=== PATIENT | female | born 1955 | race Caucasian/White ===

== ENCOUNTER → 2018-05-26 11:28 | Outpatient (CLI) | payer OTHER, SELFPAY ==
--- NOTE | 2018-05-26 | DI.MG.S_ITS ---
BILATERAL DIGITAL SCREENING MAMMOGRAM 3D/2D WITH CAD: 05/26/2018 CLINICAL: Routine screening. Family history of breast cancer. Comparison is made to exams dated: 05/15/2017 mammogram, 04/25/2016 mammogram - [facility], and 03/08/2015 mammogram - [facility] Current study was also evaluated with a Computer Aided Detection (CAD) system. There are benign calcifications in the left breast. Stable group of anterior depth punctate calcifications which appear slightly more pronounced since 2017 but stable since 2018. No associated mass or architectural distortion. No significant masses, calcifications, or other findings are seen in either breast. There has been no significant interval change. IMPRESSION: There is no mammographic evidence of malignancy. A 1 year screening mammogram is recommended. This exam was interpreted at Station ID: [id number]. NOTE: For mammograms, a report in lay terms will be sent to the patient. Approximately 15% of breast malignancies will not be visualized mammographically. In the management of a palpable breast mass, a negative mammogram must not discourage biopsy of a clinically suspicious lesion. Electronically Signed By: Dominic ludwig/:05/26/2018 12:32:57 letter sent: Normal Exam ACR BI-RADS Category 2: Benign Finding(s) 3342F
== END ==
PROVIDERS: Family Provider Family Medicine; PCP Family Medicine; Visit Provider Family Medicine
DX: Z12.31 Encounter for screening mammogram for malignant neoplasm of breast (principal); Z80.3 Family history of malignant neoplasm of breast
CPT/HCPCS: 77063; 77067

== ENCOUNTER → 2018-09-09 09:00 | Outpatient (CLI) | payer OTHER, SELFPAY ==
--- NOTE | 2018-09-09 09:01 | DI.US.S_ITS ---
PROCEDURE: US PERIPH VENOUS LOW EXTREM LT INDICATIONS: CALF PAIN TECHNIQUE: Real-time imaging, as well as color and pulse Doppler interrogation, were performed of the lower extremity deep veins from the inguinal ligament to the popliteal fossa. COMPARISON: None. FINDINGS: The common femoral, femoral and popliteal veins are normally compressible, and free of intraluminal thrombus. Color and pulse Doppler demonstrate normal phasic intraluminal flow. There is normal augmentation response to distal compression maneuver. IMPRESSION: No evidence of deep vein thrombosis of the left lower extremity. Dictated by: Mustapha Glover M.D. on 09/09/2018 at 9:35 Approved by: Mustapha Glover M.D. on 09/09/2018 at 9:35
== END ==
PROVIDERS: Family Provider Family Medicine; PCP Family Medicine; Visit Provider Hospitalist
DX: M79.662 Pain in left lower leg (principal)
CPT/HCPCS: 93971

== ENCOUNTER → 2019-02-20 11:21 | Outpatient (CLI) | payer OTHER, SELFPAY ==
[2019-02-20 12:47] LABS: Add Manual Diff / Slide Review NO; Basophils Absolute Auto 100 /uL (0-100); Basophils Percent Auto 1.1 % (0-2); Eosinophils Absolute Auto 100 /uL (0-450); Eosinophils Percent Auto 1.8 % (2-4); Hematocrit 41.6 % (36-46); Hemoglobin 14.1 g/dL (12.0-16.0); Lymphocytes Absolute Auto 2200 /uL (1100-4500); Lymphocytes Percent Auto 38.8 % (25-40); Mean Corpuscular Hemoglobin 31.6 PG (26-34); Monocytes Absolute Auto 500 /uL (0-900); Monocytes Percent Auto 8.8 % (3-14); Neutrophils Absolute Auto 2800 /uL (1500-7000); Neutrophils Percent Auto 49.5 % (50-75); Platelet Count 259 X10^3/uL (150-400); Red Blood Cell Count 4.47 X10^6/uL (4.0-5.2); Red Cell Distribution Width 12.4 % (11.6-14.8); White Blood Cell Count 5.7 X10^3/uL (4.5-11.0)
[2019-02-20 13:28] LABS: Alanine Aminotransferase 20 IU/L (<35); Albumin 4.9 g/dL (3.5-5.0); Albumin Globulin Ratio 1.8 (1.0-2.8); Alkaline Phosphatase 65 U/L (38-126); Aspartate Aminotransferase 32 IU/L (14-36); BUN Creatinine Ratio 17.1 (6-22); Bilirubin Total 0.6 mg/dL (0.2-1.3); Blood Urea Nitrogen 12 mg/dL (7-17); Calcium 9.7 mg/dL (8.4-10.2); Carbon Dioxide 28 mmol/L (22-32); Chloride 102 mmol/L (98-107); Estimated Glomerular Filt Rate > 60.0 mL/min (>60); Globulin 2.8 g/dL (1.7-4.1); Glucose 95 mg/dL (80-110); HEMOLYSIS < 15 (0-50); Potassium 4.2 mmol/L (3.4-5.1); Sodium 140 mmol/L (137-145); Total Protein 7.7 g/dL (6.3-8.2)
[2019-02-20 14:09] LABS: Vitamin B12 923 pg/mL (239-931)
[2019-02-20 15:01] LABS: Vitamin D 25 Hydroxy (D3) 43.7 ng/mL (30.0-100.0)
== END ==
PROVIDERS: PCP Family Medicine; Visit Provider Family Medicine
DX: E53.8 Deficiency of other specified B group vitamins (principal); R06.02 Shortness of breath; M85.80 Other specified disorders of bone density and structure, unspecified site
CPT/HCPCS: 36415; 80053; 82306; 82607; 85025

== ENCOUNTER → 2019-03-10 13:00 | Outpatient (CLI) | payer OTHER, SELFPAY | PROVIDERS: PCP Family Medicine; Visit Provider Family Medicine | DX: M85.852 Other specified disorders of bone density and structure, left thigh (principal); Z78.0 Asymptomatic menopausal state; R29.890 Loss of height | CPT/HCPCS: 77080 ==

== ENCOUNTER → 2019-04-02 13:45 | Outpatient (CLI) | payer OTHER, SELFPAY ==
--- NOTE | 2019-04-13 08:07 | PM.PFT.1 ---
Pulmonary Function Test Referral & Results Date Patient Seen: 04/02/19 Requesting provider: Pat Deng Results: The spirometry demonstrates an FVC of 2.71 L which is 86% of predicted. The FEV1 was measured at 2.13 L which is 88% of predicted. The FEV1/FVC ratio was 79 which is 101% of predicted. Following the administration of bronchodilator there was no appreciable change. Lung volumes show an SVC of 2.71 L which is 92% of predicted. The diffusing capacity was measured at 17.55 which is 74% of predicted. No hemoglobin value was provided, so no correction for potential anemia could be made, if appropriate. The maximum voluntary ventilation was slightly reduced Interpretation: This study demonstrates perhaps very mild obstructive lung disease based on minimal reduction FEV1. There is also a mild reduction in diffusing capacity suggesting an element of disease at the capillary alveolar level This study could also be interpreted as normal although the diffusing capacity is minimally reduced in probably does reflect an element of disease Clinical correlation suggested
== END ==
PROVIDERS: PCP Family Medicine; Visit Provider Family Medicine
DX: Z77.22 Contact with and (suspected) exposure to environmental tobacco smoke (acute) (chronic) (principal); J98.8 Other specified respiratory disorders
CPT/HCPCS: 94060; 94726; 94729

== ENCOUNTER → 2019-10-28 10:56 | Outpatient (CLI) | payer MEDICARE, OTHER, SELFPAY ==
--- NOTE | 2019-10-28 | DI.MG.S_ITS ---
BILATERAL DIGITAL SCREENING MAMMOGRAM 3D/2D WITH CAD: 10/28/2019 CLINICAL: Routine screening. Family history of breast cancer. Comparison is made to exams dated: 05/26/2018 mammogram, 05/15/2017 mammogram, and 04/25/2016 mammogram - [facility]. There are scattered fibroglandular elements in both breasts. Current study was also evaluated with a Computer Aided Detection (CAD) system. There are 0.4 cm grouped fine punctate calcifications in the left breast central to the nipple anterior depth. These are more prominent and increased in number. No other significant masses, calcifications, or other findings are seen in either breast. IMPRESSION: INCOMPLETE: NEEDS ADDITIONAL IMAGING EVALUATION The 0.4 cm grouped fine punctate calcifications in the left breast are indeterminate. Mediolateral, spot magnification, and additional views are recommended. This exam was interpreted at Station ID: [id number]. NOTE: For mammograms, a report in lay terms will be sent to the patient. Approximately 15% of breast malignancies will not be visualized mammographically. In the management of a palpable breast mass, a negative mammogram must not discourage biopsy of a clinically suspicious lesion. Electronically Signed By: Dominic Kovacs M.D. aty/:10/28/2019 17:31:57 letter sent: Additional Imaging Needed ACR BI-RADS Category 0: Incomplete 3340F
== END ==
PROVIDERS: PCP Family Medicine; Referring Provider Family Medicine; Visit Provider Family Medicine
DX: Z12.31 Encounter for screening mammogram for malignant neoplasm of breast (principal); Z80.3 Family history of malignant neoplasm of breast
CPT/HCPCS: 77063; 77067

== ENCOUNTER → 2020-11-22 14:52 | Outpatient (CLI) | payer MEDICARE, OTHER, SELFPAY ==
--- NOTE | 2020-11-22 | DI.MG.S_ITS ---
BILATERAL DIGITAL SCREENING MAMMOGRAM 3D/2D WITH CAD: 11/22/2020 CLINICAL: Routine screening. Family history of breast cancer. Comparison is made to exams dated: 11/05/2019 mammogram - [facility], 10/28/2019 mammogram, 05/26/2018 mammogram, 05/15/2017 mammogram, and 04/25/2016 mammogram - [facility]. There are scattered fibroglandular elements in both breasts. Current study was also evaluated with a Computer Aided Detection (CAD) system. There is a biopsy clip in the left breast. No significant masses, calcifications, or other findings are seen in either breast. There has been no significant interval change. IMPRESSION: NEGATIVE There is no mammographic evidence of malignancy. A 1 year screening mammogram is recommended. This exam was interpreted at Station ID: [id number]. NOTE: For mammograms, a report in lay terms will be sent to the patient. Approximately 15% of breast malignancies will not be visualized mammographically. In the management of a palpable breast mass, a negative mammogram must not discourage biopsy of a clinically suspicious lesion. Electronically Signed By: Hardeep mitchell/kam:11/22/2020 15:41:37 letter sent: Normal Exam ACR BI-RADS Category 1: Negative 3341F
== END ==
PROVIDERS: PCP Family Medicine; Referring Provider Family Medicine; Visit Provider Family Medicine
DX: Z12.31 Encounter for screening mammogram for malignant neoplasm of breast (principal); Z80.3 Family history of malignant neoplasm of breast
CPT/HCPCS: 77063; 77067

== ENCOUNTER → 2021-01-02 14:30 | Outpatient (CLI) | payer MEDICARE, OTHER, SELFPAY ==
--- NOTE | 2021-01-02 14:33 | DI.RAD.S_ITS ---
PROCEDURE: XR KNEE LT 3V INDICATIONS: left knee pain TECHNIQUE: 3 views of the knee were acquired. COMPARISON: None. FINDINGS: Bones: No fractures or dislocations. No suspicious bony lesions. Mild medial patellofemoral compartment narrowing. No erosions or periarticular osteophytes. Soft tissues: Mild joint effusion. No suspicious soft tissue calcifications. IMPRESSION: Arthritic changes as above. No visualized acute fracture or dislocation. However, if clinical concern and/or pain persist, short interval imaging followup in 7-10 days is recommended, as occult injury cannot be definitively excluded. Dictated by: Jessica Gipson M.D. on 01/02/2021 at 16:08 Approved by: Jessica Gipson M.D. on 01/02/2021 at 16:08
== END ==
PROVIDERS: PCP Family Medicine; Referring Provider Family Medicine; Visit Provider Family Medicine
DX: M25.562 Pain in left knee (principal); M25.462 Effusion, left knee
CPT/HCPCS: 73562

== ENCOUNTER → 2021-01-04 07:26 | Outpatient (CLI) | payer MEDICARE, OTHER, SELFPAY ==
[2021-01-04 08:30] LABS: Alanine Aminotransferase 16 IU/L (<35); Albumin 4.2 g/dL (3.5-5.0); Albumin Globulin Ratio 1.7 (1.0-2.8); Alkaline Phosphatase 56 U/L (38-126); Aspartate Aminotransferase 26 IU/L (14-36); Bilirubin Total 0.5 mg/dL (0.2-1.3); Blood Urea Nitrogen 12 mg/dL (7-17); Calcium 9.6 mg/dL (8.4-10.2); Carbon Dioxide 30 mmol/L (22-32); Chloride 105 mmol/L (98-107); Cholesterol 234 mg/dL (140-199); Estimated Glomerular Filt Rate > 60.0 mL/min (>60); Globulin 2.5 g/dL (1.7-4.1); Glucose 88 mg/dL (80-110); HDL Cholesterol 78 mg/dL (40-60); HEMOLYSIS < 15 (0-50); LDL Cholesterol Calculated 134 mg/dL (<100); Potassium 4.5 mmol/L (3.4-5.1); Sodium 139 mmol/L (137-145); Total Protein 6.7 g/dL (6.3-8.2); Triglycerides 112 mg/dL (35-150)
[2021-01-04 08:44] LABS: Vitamin D 25 Hydroxy (D3) 48.9 ng/mL (30.0-100.0)
[2021-01-04 09:40] LABS: Vitamin B12 954 pg/mL (239-931)
== END ==
PROVIDERS: PCP Family Medicine; Referring Provider Family Medicine; Visit Provider Family Medicine
DX: G62.9 Polyneuropathy, unspecified (principal); Z13.220 Encounter for screening for lipoid disorders; E55.9 Vitamin D deficiency, unspecified; M85.80 Other specified disorders of bone density and structure, unspecified site; E78.5 Hyperlipidemia, unspecified
CPT/HCPCS: 36415; 80053; 80061; 82306; 82607

== ENCOUNTER → 2021-03-23 09:27 | Outpatient (CLI) | payer MEDICARE, OTHER, SELFPAY ==
--- NOTE | 2021-03-23 09:28 | DI.RAD.S_ITS ---
PROCEDURE: XR DEXA AXIAL SKELETON INDICATIONS: postmenopausal female COMPARISON: [facility], CR, XR DEXA AXIAL SKELETON, 03/10/2019, 13:15. FINDINGS: This blank DEXA report has been sent in error by the PACS system. The correct and complete report will be forthcoming in 1-2 days. Thank you for your patience and understanding. Dictated by: Faustina Boswell MD, PhD on 03/23/2021 at 17:38 Approved by: Faustina Boswell MD, PhD on 03/23/2021 at 17:38
== END ==
PROVIDERS: PCP Family Medicine; Referring Provider Family Medicine; Visit Provider Family Medicine
DX: Z78.0 Asymptomatic menopausal state (principal); M85.852 Other specified disorders of bone density and structure, left thigh; E55.9 Vitamin D deficiency, unspecified; Z79.890 Hormone replacement therapy
CPT/HCPCS: 77080

== ENCOUNTER → 2021-11-28 14:19 | Outpatient (CLI) | payer MEDICARE, OTHER, SELFPAY ==
--- NOTE | 2021-11-28 | DI.MG.S_ITS ---
BILATERAL DIGITAL SCREENING MAMMOGRAM 3D/2D WITH CAD: 11/28/2021 CLINICAL: Routine screening. Family history of breast cancer. Comparison is made to exams dated: 11/22/2020 mammogram, 10/28/2019 mammogram, and 05/26/2018 mammogram - [facility]. There are scattered fibroglandular elements in both breasts. Current study was also evaluated with a Computer Aided Detection (CAD) system. There is a biopsy clip in the left breast. No significant masses, calcifications, or other findings are seen in either breast. There has been no significant interval change. IMPRESSION: NEGATIVE There is no mammographic evidence of malignancy. A 1 year screening mammogram is recommended. Based on the Tyrer Cuzick model (a risk assessment model) the patient's lifetime risk is 14.1% and her 10 year risk is 7.5%. According to the ACR, ACS, and NCCN guidelines, an annual breast MRI exam along with mammogram is recommended if the patient's lifetime risk is 20% or greater. This exam was interpreted at Station ID: [id number]. NOTE: For mammograms, a report in lay terms will be sent to the patient. Approximately 15% of breast malignancies will not be visualized mammographically. In the management of a palpable breast mass, a negative mammogram must not discourage biopsy of a clinically suspicious lesion. Electronically Signed By: Hardeep mitchell/kam:11/28/2021 17:16:52 letter sent: Normal Exam ACR BI-RADS Category 1: Negative 3341F
== END ==
PROVIDERS: PCP Family Medicine; Referring Provider Family Medicine; Visit Provider Family Medicine
DX: Z12.31 Encounter for screening mammogram for malignant neoplasm of breast (principal); Z80.3 Family history of malignant neoplasm of breast
CPT/HCPCS: 77063; 77067

== ENCOUNTER 2021-12-29 17:34 | Emergency (ER) | payer MEDICARE, OTHER, SELFPAY ==
[2021-12-29 17:45] VITALS: BP 136/64; PULSE 58; RESP 18; TEMP 36.4; O2SAT 99; BMI 23.9
--- NOTE | 2021-12-29 17:50 | DI.RAD.S_ITS ---
PROCEDURE: XR SHOULDER RT MIN 2V INDICATIONS: fell/having pain elbow to shoulder TECHNIQUE: 2 views of the shoulder were acquired. COMPARISON: None. FINDINGS: Bones: Mildly displaced avulsion fragment from the greater tuberosity extending to the metaphysis. Soft tissues: No suspicious soft tissue calcifications. IMPRESSION: Greater tuberosity humeral avulsion fracture extending to the metaphysis. Dictated by: Nitin Umaña M.D. on 12/29/2021 at 19:09 Approved by: Nitin Umaña M.D. on 12/29/2021 at 19:11
--- NOTE | 2021-12-29 17:50 | DI.RAD.S_ITS ---
PROCEDURE: XR ELBOW RT MIN 3V INDICATIONS: fell/having pain elbow to shoulder TECHNIQUE: 3 views of the elbow were acquired. COMPARISON: None. FINDINGS: Bones: No fractures or dislocations. No suspicious bony lesions. Soft tissues: No elbow joint effusion. No suspicious soft tissue calcifications. IMPRESSION: No definite acute radiographic abnormality. If there is high concern for occult injury, consider repeat radiography or cross-sectional imaging. Lateral view is suboptimally positioned. Dictated by: Nitin Umaña M.D. on 12/29/2021 at 19:06 Approved by: Nitin Umaña M.D. on 12/29/2021 at 19:08
--- NOTE | 2021-12-29 17:50 | DI.RAD.S_ITS ---
PROCEDURE: XR HUMERUS RT 2V INDICATIONS: fell/having pain elbow to shoulder TECHNIQUE: 2 views of the humerus were acquired. COMPARISON: None. FINDINGS: Bones: Mildly displaced proximal humeral metaphyseal fracture. Soft tissues: No suspicious soft tissue calcifications. IMPRESSION: Mildly displaced proximal humeral metaphysis fracture. Dictated by: Nitin Umaña M.D. on 12/29/2021 at 19:08 Approved by: Nitin Umaña M.D. on 12/29/2021 at 19:09
--- NOTE | 2021-12-29 19:22 | ED.UPPEXIN ---
HPI - Extremity Injury (Upper) <Andres Arredondo PA-C - Last Filed: 12/31/21 19:54> General Chief Complaint: Extremity Injury, Upper Stated Complaint: possible broken rt arm/Covid positive Time Seen by Provider: 12/29/21 19:07 Source: patient Mode of arrival: Ambulatory History of Present Illness HPI narrative: Patient is a 66-year-old female who presents to the emergency room today with complaint right shoulder pain after falling. Patient states that he had about 430 she was walking and lost her footing slipped on the sidewalk and fell forward she mostly braced herself with the right arm. Face arm is very painful and painful to movement. Not taken any medicine for pain states the arm is really painful at this time. Related Data Home Medications Medication Instructions Recorded Confirmed cholecalciferol (vitamin D3) 50 1 tab PO QDAY ##0 02/27/16 12/08/17 mcg (2,000 unit) tablet (Vitamin D3) cyanocobalamin (vitamin B-12) 1,000 mcg PO ##0 02/27/16 12/08/17 1,000 mcg tablet,extended release [docusate sodium] ##0 07/16/17 12/08/17 Previous Rx's Medication Instructions Recorded estradiol 10 mcg vaginal tablet See Rx Instructions .Route 11/29/20 .COMPLEX #30 tabs albuterol sulfate 90 mcg/actuation See Rx Instructions .Route 12/04/21 aerosol inhaler .COMPLEX #18 grams nirmatrelvir 300 mg (150 mg See Rx Instructions PO .COMPLEX 12/15/21 x2)-ritonavir 100 mg tablet,dose #30 ea pack(EUA) (Paxlovid) oxycodone-acetaminophen 5 mg-325 1 tab PO Q8H PRN pain #10 tabs 12/29/21 mg tablet (Percocet) Allergies Allergy/AdvReac Type Severity Reaction Status Date / Time Iodinated Contrast Media Allergy Severe Rash Verified 09/09/18 08:41 [Iodinated Contrast- Oral and IV Dye] Penicillins [PENICILLINS] Allergy Mild Verified 09/09/18 08:41 Sulfa (Sulfonamide Allergy Mild RASH Verified 09/09/18 08:41 Antibiotics) [SULFA (SULFONAMIDE ANTIBIOTICS)] Review of Systems <Andres Arredondo PA-C - Last Filed: 12/31/21 19:54> Review of Systems Narrative: R.O.S.: General: No fever, chills or fatigue. Cardiovascular: No chest pain or palpitations Respiratory: No S.O.B. HEENT: No congestion, ear pain, rhinorrhea, sore throat or tinnitus Gastrointestinal: No nausea or vomiting Skin: No rash or associated abnormalities Musculoskeletal: Pain and swelling to right shoulder. ? Neurological: Awake, alert and in not apparent distress. No Headaches, changes in vision or other related neurological concerns. Patient History <Andres Arredondo PA-C - Last Filed: 12/31/21 19:54> Medical History (Updated 12/29/21 @ 19:39 by Andres Arredondo PA-C) Chicken pox (1959) Colon polyps Depression (1988) 4 para 4 Hayfever Measles (~1959) Mumps (1959) Osteoarthritis Plantar warts (1974) Rubella (1959) Tinnitus (1974) TSS (toxic shock syndrome) (2003) Surgical History Anesthesia History of colonoscopy with polypectomy (03/17/14) History of eye surgery (1963) History of tonsillectomy (1960) Status post endometrial ablation (2004) Family History Father Lung cancer Grandfather No problems noted. Grandmother Heart disease Mother Breast cancer Grandfather No problems noted. Grandmother No problems noted. Sister No problems noted. Social History Smoking Status: Never smoker alcohol intake: current Smoking Status: Never smoker alcohol intake frequency: 0-2 drinks per day Substance Use Type: does not use Exam <Andres Arredondo PA-C - Last Filed: 12/31/21 19:54> Narrative Exam Narrative: Physical Exam: ? General: normal appearance, well developed, well nourished, alert, and awake. Not in acute distress. ? Head: Normocephalic, no lesions. Chest: Lungs CTAB, no rales, rhonchi or wheezes. ?? Heart: RRR, no murmurs, rubs or gallops. Eyes: PERRLA, EOM's full, conjunctivae clear. ? Neuro: Physiological, no localizing findings, CN3-12 intact. ?? Extremities: Right shoulder has swelling in the is tender to touch without erythema. Unable to do complete physical exam for complaint of pain. Patient has intact sensation to touch. ? Skin: Normal, no rashes, no lesions noted. ?? PSYCHIATRIC: The mood is good, no blunted affect. Speech is clear. Thought process is linear, thought content is appropriate. The voice is without significant inflection. Gastrointestinal: Soft; NT; ND; Pos BS with Neg. rebound tenderness. No scars or major deformities noted on Visual Inspection. Initial Vital Signs Initial Vital Signs: Vital Signs Temperature 97.6 F 12/29/21 17:45 Pulse Rate 58 L 12/29/21 17:45 Respiratory Rate 18 12/29/21 17:45 Blood Pressure 136/64 12/29/21 17:45 Pulse Oximetry 99 12/29/21 17:45 Oxygen Delivery Method 12/29/21 17:45 <Serg Cortés MD - Last Filed: 01/03/22 07:03> Initial Vital Signs Initial Vital Signs: Vital Signs Temperature 97.6 F 12/29/21 17:45 Pulse Rate 58 L 12/29/21 17:45 Respiratory Rate 18 12/29/21 17:45 Blood Pressure 136/64 12/29/21 17:45 Pulse Oximetry 99 12/29/21 17:45 Oxygen Delivery Method 12/29/21 17:45 Course <Andres Arredondo PA-C - Last Filed: 12/31/21 19:54> Orders Ordered: Discontinued Medications Ketorolac Tromethamine (Ketorolac 30 Mg/Ml Vial) 30 mg IM NOW ONE Stop: 12/29/21 19:28 Last Admin: 12/29/21 19:41 Dose: 30 mg Documented By: ANTONIO Vital Signs Vital signs: Vital Signs - 8 hr 12/29/21 17:45 Temperature 97.6 F Pulse Rate 58 L Respiratory Rate 18 Blood Pressure 136/64 Pulse Oximetry 99 Oxygen Delivery Method Room Air <Serg Cortés MD - Last Filed: 01/03/22 07:03> Orders Ordered: Discontinued Medications Ketorolac Tromethamine (Ketorolac 30 Mg/Ml Vial) 30 mg IM NOW ONE Stop: 12/29/21 19:28 Last Admin: 12/29/21 19:41 Dose: 30 mg Documented By: ANTONIO Vital Signs Vital signs: Vital Signs - 8 hr 12/29/21 17:45 Temperature 97.6 F Pulse Rate 58 L Respiratory Rate 18 Blood Pressure 136/64 Pulse Oximetry 99 Oxygen Delivery Method Room Air MDM - Extremity Injury (Upper) <Andres Arredondo PA-C - Last Filed: 12/31/21 19:54> Imaging Data Extremity x-ray #1: Radiologist's Impression: PROCEDURE:? XR SHOULDER RT MIN 2V ? INDICATIONS:? fell/having pain elbow to shoulder ? TECHNIQUE:? 2 views of the shoulder were acquired.? ? COMPARISON:? None. ? FINDINGS:? ? Bones:? Mildly displaced avulsion fragment from the greater tuberosity extending to the metaphysis. ? Soft tissues:? No suspicious soft tissue calcifications.? ? IMPRESSION:? Greater tuberosity humeral avulsion fracture extending to the metaphysis.? ? ? Dictated by: Nitin Umaña M.D. on 12/29/2021 at 19:09 ? ? Approved by: Nitin Umaña M.D. on 12/29/2021 at 19:11 ? Extremity x-ray #2: Radiologist's Impression: PROCEDURE:? XR HUMERUS RT 2V ? INDICATIONS:? fell/having pain elbow to shoulder ? TECHNIQUE:? 2 views of the humerus were acquired.? ? COMPARISON:? None. ? FINDINGS:? ? Bones:? Mildly displaced proximal humeral metaphyseal fracture. ? Soft tissues:? No suspicious soft tissue calcifications.? ? IMPRESSION:? Mildly displaced proximal humeral metaphysis fracture. ? ? Dictated by: Nitin Umaña M.D. on 12/29/2021 at 19:08 ? ? Approved by: Nitin Umaña M.D. on 12/29/2021 at 19:09 ? Extremity x-ray #3: Radiologist's Impression: PROCEDURE:? XR ELBOW RT MIN 3V ? INDICATIONS:? fell/having pain elbow to shoulder ? TECHNIQUE:? 3 views of the elbow were acquired.? ? COMPARISON:? None. ? FINDINGS:? ? Bones:? No fractures or dislocations.? No suspicious bony lesions.? ? Soft tissues:? No elbow joint effusion.? No suspicious soft tissue calcifications.? ? ? IMPRESSION:? No definite acute radiographic abnormality.? If there is high concern for occult injury, consider repeat radiography or cross-sectional imaging.? Lateral view is suboptimally positioned. ? ? Dictated by: Nitin Umaña M.D. on 12/29/2021 at 19:06 ? ? Approved by: Nitin Umaña M.D. on 12/29/2021 at 19:08 ? [facility] Narrative Medical decision making narrative: Patient is a 66-year-old female who presents to the emergency room today with complaint of right shoulder pain after losing her footing and slipping and falling. X-ray read impression of:Greater tuberosity humeral avulsion fracture extending to the metaphysis. I contacted the on-call orthopedic provider there was advised to with the patient on a sling the patient follow-up with Ortho next week. Discharge Plan Departure Patient Disposition: Home Clinical Impression: Fracture, humerus Instructions: DI for Humeral Fracture Activity Restrictions/Additional Instructions: *You have been diagnosed with fracture to her right humerus. You have been given a sling and she keeps the arm immobilized in a sling and to follow up with Orthopedics. Please follow-up with [facility] and Dr. Ruano. Their phone number is [phone]. I have ordered some pain medicine to help with extreme pain and to follow-up with orthopedics. Please refrain from any strenuous activity involving your right upper extremity. Also please return to the emergency room for emergent concerns arise. [ ] *What to do: *Please continue to take your regular medications as directed. [ ] New medication prescriptions sent to your pharmacy: [ ] [x] New medication written as a paper prescription [ ] No new medications given *Please follow up with your primary care provider in 2-3 days, call for an appointment. Let them know you were seen in the Emergency Department and that we ask that you be seen in follow up. We will electronically transmit a record of today's note if your PCP is in our system *If you do not have a primary care provider please contact the [facility] Resource line at [phone]. They will ask some questions about your medical history and help get you set up with a doctor in the community. *Return to Emergency Department if you should have any new, worsening or concerning symptoms, such as [fever greater than 101 F, shaking chills, worsening pain, persistent vomiting or other bothersome symptoms] Prescriptions: New oxycodone-acetaminophen [Percocet] 5-325 mg tablet 1 tab PO Q8H PRN (Reason: pain) Qty: 10 0RF No Action cyanocobalamin (vitamin B-12) 1,000 MCG tablet extended release 1,000 mcg PO Qty: 0 cholecalciferol (vitamin D3) [Vitamin D3] 2,000 UNIT tablet 1 tab PO QDAY Qty: 0 [docusate sodium] Qty: 0 estradiol 10 mcg tablet See Rx Instructions .ROUTE .COMPLEX Qty: 30 6RF Dose Instruction: INSERT ONE TABLET VAGINALLY DAILY AT BEDTIME Rx Instructions: INSERT ONE TABLET VAGINALLY DAILY AT BEDTIME albuterol sulfate 90 mcg/actuation HFA aerosol inhaler See Rx Instructions .ROUTE .COMPLEX Qty: 18 3RF Dose Instruction: INHALE 2 PUFFS BY MOUTH EVERY 4 HOURS NEEDED FOR SHORTNESS OF BREATH OR WHEEZING Rx Instructions: INHALE 2 PUFFS BY MOUTH EVERY 4 HOURS NEEDED FOR SHORTNESS OF BREATH OR WHEEZING Paxlovid (EUA) 300 mg (150 mg x 2)-100 mg tablets,dose pack See Rx Instructions PO .COMPLEX Qty: 30 0RF Rx Instructions: take TWO 150 mg tablets of nirmatrelvir with ONE 100 mg tablet of ritonavir twice daily for 5 days PO Referrals: Pat Deng DO [Primary Care Provider] - Visit Report Forms: Patient Portal/API <Serg Cortés MD - Last Filed: 01/03/22 07:03> [facility] I was immediately available in the department for consultation. This documentation has been reviewed and I agree with assessment and plan. Supervised by Serg Cortés MD
[2021-12-29] MEDS: KETOROLAC 30 MG/ML VIAL IM (19:41)
== END 2021-12-29 19:55 | disposition home or self-care (01) ==
PROVIDERS: Emergency Provider Physician Assistant; PCP Family Medicine
DX: S42.301A Unspecified fracture of shaft of humerus, right arm, initial encounter for closed fracture (principal); W19.XXXA Unspecified fall, initial encounter
CPT/HCPCS: 73030; 73060; 73080; 96372; 99283; J1885

== ENCOUNTER → 2022-01-22 12:39 | Outpatient (CLI) | payer MEDICARE, OTHER, SELFPAY ==
[2022-01-22 13:41] LABS: Appearance Urine UA CLEAR; Bilirubin Urine UA NEGATIVE (NEGATIVE); Color Urine UA YELLOW; Glucose Urine UA NEGATIVE (Negative); Ketones Urine UA NEGATIVE (NEGATIVE); Leukocyte Esterase Urine UA 2+ (NEGATIVE); Nitrite Urine UA NEGATIVE (Negative); Occult Blood Urine UA NEGATIVE (Negative); Protein Urine UA NEGATIVE (Negative); Specific Gravity Urine UA <=1.005 (1.000-1.035); Urobilinogen Urine UA 0.2 E.U./dL (0.2)
[2022-01-22 13:45] LABS: Bacteria Urine None Seen; Culture Indicated Urine Specimen Cultured; RBC Urine None Seen (0-5/HPF); Squamous Epithelial Cell Urine 5-10 /HPF (0-5/HPF); WBC Urine 5-10/HPF (0-5/HPF)
== END ==
PROVIDERS: PCP Family Medicine; Referring Provider Family Medicine; Visit Provider Family Medicine
DX: R30.0 Dysuria (principal)
CPT/HCPCS: 81003; 81015; 87086

== ENCOUNTER 2022-01-24 16:35 | Emergency (ER) | payer MEDICARE, OTHER, SELFPAY ==
[2022-01-24 16:42] VITALS: BP 153/74; PULSE 73; RESP 16; TEMP 37.3; O2SAT 98; BMI 25.0
[2022-01-24 18:08] LABS: Alanine Aminotransferase 16 IU/L (<35); Albumin Globulin Ratio 1.2 (1.0-2.8); Alkaline Phosphatase 76 U/L (38-126); Aspartate Aminotransferase 25 IU/L (14-36); BUN Creatinine Ratio 17.8 (6-22); Bilirubin Total 0.7 mg/dL (0.2-1.3); Blood Urea Nitrogen 8 mg/dL (7-17); Calcium 8.8 mg/dL (8.4-10.2); Carbon Dioxide 23 mmol/L (22-32); Chloride 97 mmol/L (98-107); Estimated Glomerular Filt Rate > 60 mL/min (>60); Globulin 3.3 g/dL (1.7-4.1); Glucose 123 mg/dL (80-110); HEMOLYSIS 31 (0-50); Potassium 3.6 mmol/L (3.4-5.1); Sodium 130 mmol/L (137-145); Total Protein 7.3 g/dL (6.3-8.2)
[2022-01-24 18:10] LABS: Add Manual Diff / Slide Review NO; Basophils Absolute Auto 0 /uL (0-100); Basophils Percent Auto 0.3 % (0-2); Eosinophils Absolute Auto 0 /uL (0-450); Eosinophils Percent Auto 0.4 % (2-4); Hematocrit 35.2 % (36-46); Lymphocytes Absolute Auto 1200 /uL (1100-4500); Lymphocytes Percent Auto 13.4 % (25-40); Mean Corpuscular HGB Conc 34.2 % (30-36); Mean Corpuscular Hemoglobin 31.3 PG (26-34); Mean Corpuscular Volume 91.5 fL (80-100); Monocytes Absolute Auto 1100 /uL (0-900); Monocytes Percent Auto 12.9 % (3-14); Neutrophils Absolute Auto 6500 /uL (1500-7000); Platelet Count 211 X10^3/uL (150-400); Red Blood Cell Count 3.84 X10^6/uL (4.0-5.2); Red Cell Distribution Width 13.1 % (11.6-14.8); White Blood Cell Count 8.9 X10^3/uL (4.5-11.0)
[2022-01-24 18:35] LABS: Influenza A - CEPHEID Flu A NEGATIVE (NEGATIVE); Influenza B - CEPHEID Flu B NEGATIVE (NEGATIVE)
[2022-01-24 18:39] LABS: COVID-19 CEPHEID PCR (VTM/NP) POSITIVE (Negative)
[2022-01-24] MEDS: cefTRIAXone 1,000 MG in SODIUM CHLORIDE 0.9% 100 ML 200 MG IV (18:52)
[2022-01-24] MEDS: ACETAMINOPHEN 325 MG TABLET 975 MG PO (18:52)
[2022-01-24] MEDS: LACTATED RINGERS 1,000 ML 1000 ML IV (18:52)
[2022-01-24] MEDS: ONDANSETRON 4 MG/2 ML INJ IV (18:53)
[2022-01-24] MEDS: KETOROLAC 30 MG/ML VIAL 15 MG IV (18:54)
[2022-01-24] MEDS: diphenhydrAMINE 50 MG/ML VIAL 25 MG IV (18:54)
[2022-01-24] MEDS: PHENAZOPYRIDINE 100 MG TABLET PO (18:55)
--- NOTE | 2022-01-24 18:56 | ED_ITS ---
HPI - Headache <MICHI Hinds - Last Filed: 01/24/22 19:47> General Chief Complaint: Headache Stated Complaint: Headache Time Seen by Provider: 01/24/22 18:21 Mode of arrival: Family Vehicle History of Present Illness HPI Narrative: This is a 66-year-old female with history of COVID on December 15 status post Paxlovid who presents to the emergency department complaining of dysuria and urinary frequency but primarily of an ongoing headache that she states she is had since she tested positive for COVID. She states that she is been drinking plenty of water, still has ongoing muscle aches, shortness of breath with exertion, denies any chest pain or severe shortness of breath. Endorses urinary frequency last night, dysuria and subjective fever. States her symptoms started 3 or 4 days ago. Denies any nausea or vomiting but states she has not had a appetite and did not have any desire for food today. Related Data Home Medications Medication Instructions Recorded Confirmed cholecalciferol (vitamin D3) 50 1 tab PO QDAY ##0 02/27/16 01/24/22 mcg (2,000 unit) tablet (Vitamin D3) cyanocobalamin (vitamin B-12) 1,000 mcg PO ##0 02/27/16 01/24/22 1,000 mcg tablet,extended release [docusate sodium] ##0 07/16/17 01/24/22 Previous Rx's Medication Instructions Recorded estradiol 10 mcg vaginal tablet See Rx Instructions .Route 11/29/20 .COMPLEX #30 tabs albuterol sulfate 90 mcg/actuation See Rx Instructions .Route 12/04/21 aerosol inhaler .COMPLEX #18 grams nirmatrelvir 300 mg (150 mg See Rx Instructions PO .COMPLEX 12/15/21 x2)-ritonavir 100 mg tablet,dose #30 ea pack(EUA) (Paxlovid) oxycodone-acetaminophen 5 mg-325 1 tab PO Q8H PRN pain #10 tabs 12/29/21 mg tablet (Percocet) cephalexin 500 mg capsule 500 mg PO QID acute cystitis 5 01/24/22 days #20 caps ondansetron 4 mg disintegrating 4 mg PO Q8H PRN nausea and 01/24/22 tablet vomiting/ headache #10 tabs phenazopyridine 100 mg tablet 100 mg PO TID PRN pain 6 doses #7 01/24/22 (Pyridium) tabs Allergies Allergy/AdvReac Type Severity Reaction Status Date / Time Iodinated Contrast Media Allergy Severe Rash Verified 01/24/22 16:46 [Iodinated Contrast- Oral and IV Dye] Penicillins [PENICILLINS] Allergy Mild Verified 01/24/22 16:46 Sulfa (Sulfonamide Allergy Mild RASH Verified 01/24/22 16:46 Antibiotics) [SULFA (SULFONAMIDE ANTIBIOTICS)] Review of Systems <MICHI Hinds - Last Filed: 01/24/22 19:47> Review of Systems Narrative: Review of systems is negative for acute abnormalities unless otherwise noted in HPI Patient History <MICHI Hinds - Last Filed: 01/24/22 19:47> Medical History (Updated 01/24/22 @ 18:58 by MICHI Hinds) Chicken pox (1959) Colon polyps Depression (1988) 4 para 4 Hayfever Measles (~1959) Mumps (1959) Osteoarthritis Plantar warts (1974) Rubella (1959) Tinnitus (1974) TSS (toxic shock syndrome) (2003) Surgical History Anesthesia History of colonoscopy with polypectomy (03/17/14) History of eye surgery (1963) History of tonsillectomy (1960) Status post endometrial ablation (2004) Family History Father Lung cancer Grandfather No problems noted. Grandmother Heart disease Mother Breast cancer Grandfather No problems noted. Grandmother No problems noted. Sister No problems noted. Social History Smoking Status: Never smoker alcohol intake: current Smoking Status: Never smoker alcohol intake frequency: 0-2 drinks per day Substance Use Type: does not use Exam <MICHI Hinds - Last Filed: 01/24/22 19:47> Narrative Exam Narrative: Reviewed vitals signs and nursing notes. General: cooperative, comfortable, in no acute distress, well groomed HEENT: symmetrical facial expressions, moist mucous membranes Cardiovascular: regular rate and rhythm, no peripheral edema, warm extremities Respiratory: normal effort, able to speak in complete sentences, without wheezi ng, stridor, or abnormal breath sounds. No retractions or tachypnea. GI: abdomen soft, nontender to palpation, nondistended, without masses, rebound tenderness or exquisite tenderness with exam. MSK: moves all extremities, neurovascularly intact, no weakness, normal tone Skin: brisk capillary refill, without pallor or erythema Neuro: normal speech and cognition, A&O x3, ambulatory, clear speech Psych: mental status is grossly normal, congruent mood, normal affect, pleasant and cooperative Initial Vital Signs Initial Vital Signs: Vital Signs Temperature 99.1 F 01/24/22 16:42 Pulse Rate 73 01/24/22 16:42 Respiratory Rate 16 01/24/22 16:42 Blood Pressure 153/74 H 01/24/22 16:42 Pulse Oximetry 98 01/24/22 16:42 Oxygen Delivery Method 01/24/22 16:42 <Susan Musa DO - Last Filed: 01/25/22 07:43> Initial Vital Signs Initial Vital Signs: Vital Signs Temperature 99.1 F 01/24/22 16:42 Pulse Rate 73 01/24/22 16:42 Respiratory Rate 16 01/24/22 16:42 Blood Pressure 153/74 H 01/24/22 16:42 Pulse Oximetry 98 01/24/22 16:42 Oxygen Delivery Method 01/24/22 16:42 Course <MICHI Hinds - Last Filed: 01/24/22 19:47> Orders Ordered: Discontinued Medications Acetaminophen (Acetaminophen 325 Mg Tablet) 975 mg PO NOW ONE Stop: 01/24/22 18:32 Last Admin: 01/24/22 18:52 Dose: 975 mg Documented By: ANTONIO Dexamethasone (Dexamethasone 10 Mg/Ml Vial) 8 mg IV NOW ONE Stop: 01/24/22 18:32 Last Admin: 01/24/22 18:43 Dose: Not Given Documented By: ANTONIO Diphenhydramine HCl (Diphenhydramine 50 Mg/Ml Vial) 25 mg IV NOW ONE Stop: 01/24/22 18:32 Last Admin: 01/24/22 18:54 Dose: 25 mg Documented By: ANTONIO Lactated Ringer's (Lactated Ringers) 1,000 mls @ 1,000 mls/hr IV BOLUS ONE Stop: 01/24/22 19:30 Last Infusion: 01/24/22 19:13 Dose: 1,000 mls/hr Documented By: Admin: 01/24/22 18:52 Dose: 1,000 mls/hr Documented By: ANTONIO Ceftriaxone Sodium 1,000 mg/ (Sodium Chloride) 100 mls @ 200 mls/hr IV NOW ONE Stop: 01/24/22 18:32 Last Infusion: 01/24/22 19:47 Dose: 0 mls/hr Documented By: Admin: 01/24/22 18:52 Dose: 200 mls/hr Documented By: ANTONIO Sodium Chloride (Normal Saline 0.9%) 1,000 mls @ 1,000 mls/hr IV BOLUS ONE Stop: 01/24/22 19:54 Last Infusion: 01/24/22 20:42 Dose: 0 mls/hr Documented By: Admin: 01/24/22 19:16 Dose: 1,000 mls/hr Documented By: GRACIELA Ketorolac Tromethamine (Ketorolac 30 Mg/Ml Vial) 15 mg IV NOW ONE Stop: 01/24/22 18:32 Last Admin: 01/24/22 18:54 Dose: 15 mg Documented By: ANTONIO Ondansetron HCl (Ondansetron 4 Mg/2 Ml Inj) 4 mg IV NOW ONE Stop: 01/24/22 18:32 Last Admin: 01/24/22 18:53 Dose: 4 mg Documented By: ANTONIO Phenazopyridine HCl (Phenazopyridine 100 Mg Tablet) 100 mg PO NOW ONE Stop: 01/24/22 18:32 Last Admin: 01/24/22 18:55 Dose: 100 mg Documented By: ANTONIO Vital Signs Vital signs: Vital Signs - 8 hr 01/24/22 16:42 Temperature 99.1 F Pulse Rate 73 Respiratory Rate 16 Blood Pressure 153/74 H Pulse Oximetry 98 Oxygen Delivery Method Room Air <Susan Musa DO - Last Filed: 01/25/22 07:43> Orders Ordered: Discontinued Medications Acetaminophen (Acetaminophen 325 Mg Tablet) 975 mg PO NOW ONE Stop: 01/24/22 18:32 Last Admin: 01/24/22 18:52 Dose: 975 mg Documented By: ANTONIO Dexamethasone (Dexamethasone 10 Mg/Ml Vial) 8 mg IV NOW ONE Stop: 01/24/22 18:32 Last Admin: 01/24/22 18:43 Dose: Not Given Documented By: ANTONIO Diphenhydramine HCl (Diphenhydramine 50 Mg/Ml Vial) 25 mg IV NOW ONE Stop: 01/24/22 18:32 Last Admin: 01/24/22 18:54 Dose: 25 mg Documented By: ANTONIO Lactated Ringer's (Lactated Ringers) 1,000 mls @ 1,000 mls/hr IV BOLUS ONE Stop: 01/24/22 19:30 Last Infusion: 01/24/22 19:13 Dose: 1,000 mls/hr Documented By: Admin: 01/24/22 18:52 Dose: 1,000 mls/hr Documented By: ANTONIO Ceftriaxone Sodium 1,000 mg/ (Sodium Chloride) 100 mls @ 200 mls/hr IV NOW ONE Stop: 01/24/22 18:32 Last Infusion: 01/24/22 19:47 Dose: 0 mls/hr Documented By: Admin: 01/24/22 18:52 Dose: 200 mls/hr Documented By: ANTONIO Sodium Chloride (Normal Saline 0.9%) 1,000 mls @ 1,000 mls/hr IV BOLUS ONE Stop: 01/24/22 19:54 Last Infusion: 01/24/22 20:42 Dose: 0 mls/hr Documented By: Admin: 01/24/22 19:16 Dose: 1,000 mls/hr Documented By: GRACIELA Ketorolac Tromethamine (Ketorolac 30 Mg/Ml Vial) 15 mg IV NOW ONE Stop: 01/24/22 18:32 Last Admin: 01/24/22 18:54 Dose: 15 mg Documented By: ANTONIO Ondansetron HCl (Ondansetron 4 Mg/2 Ml Inj) 4 mg IV NOW ONE Stop: 01/24/22 18:32 Last Admin: 01/24/22 18:53 Dose: 4 mg Documented By: ANTONIO Phenazopyridine HCl (Phenazopyridine 100 Mg Tablet) 100 mg PO NOW ONE Stop: 01/24/22 18:32 Last Admin: 01/24/22 18:55 Dose: 100 mg Documented By: ANTONIO Vital Signs Vital signs: Vital Signs - 8 hr 01/24/22 16:42 Temperature 99.1 F Pulse Rate 73 Respiratory Rate 16 Blood Pressure 153/74 H Pulse Oximetry 98 Oxygen Delivery Method Room Air MDM - Headache <Sayda Carrasco, ROULETTE DEALER - Last Filed: 01/24/22 19:47> Lab Data Result diagrams: 01/24/22 17:36 01/24/22 17:35 Labs: Lab Results 01/24/22 01/24/22 01/24/22 Range/Units 17:30 17:35 17:35 WBC (4.5-11.0) X10^3/uL RBC (4.0-5.2) X10^6/uL Hgb (12.0-16.0) g/dL Hct (36-46) % MCV (80-100) fL MCH (26-34) PG MCHC (30-36) % RDW (11.6-14.8) % Plt Count (150-400) X10^3/uL Neut % (Auto) (50-75) % Lymph % (Auto) (25-40) % Nance % (Auto) (3-14) % Eos % (Auto) (2-4) % Baso % (Auto) (0-2) % Neut # (Auto) (4509-1515) /uL Lymph # (Auto) (1053-9572) /uL Nance # (Auto) (0-900) /uL Eos # (Auto) (0-450) /uL Baso # (Auto) (0-100) /uL Sodium 130 L (137-145) mmol/L Potassium 3.6 (3.4-5.1) mmol/L Chloride 97 L (98-107) mmol/L Carbon Dioxide 23 (22-32) mmol/L BUN 8 (7-17) mg/dL Creatinine 0.45 L (0.52-1.04) mg/dL Estimated GFR > 60 (>60) mL/min BUN/Creatinine Ratio 17.8 (6-22) Glucose 123 H (80-110) mg/dL Lactate (0.7-2.1) mmol/L Calcium 8.8 (8.4-10.2) mg/dL Total Bilirubin 0.7 (0.2-1.3) mg/dL AST 25 (14-36) IU/L ALT 16 (<35) IU/L Alkaline Phosphatase 76 (38-126) U/L Total Protein 7.3 (6.3-8.2) g/dL Albumin 4.0 (3.5-5.0) g/dL Globulin 3.3 (1.7-4.1) g/dL Albumin/Globulin Ratio 1.2 (1.0-2.8) Lipase 28 (23-300) U/L Procalcitonin 0.04 (<0.5) ng/mL Urine Color Urine Appearance Urine pH (4.5-8.0) Ur Specific [place] (1.000-1.035) Urine Protein (Negative) Urine Glucose (UA) (Negative) g/dL Urine Ketones (NEGATIVE) Urine Occult Blood (Negative) Urine Nitrate (Negative) Urine Bilirubin (NEGATIVE) Urine Urobilinogen (0.2) E.U./dL Ur Leukocyte Esterase (NEGATIVE) Urine RBC (0-5/HPF) Urine WBC (0-5/HPF) Ur Squamous Epith Cells (0-5/HPF) Amorphous Sediment Urine Bacteria (None) Ur Culture Indicated? SARS-CoV-2 (PCR) Positive H (Negative) Influenza A (RT-PCR) Flu a negative (NEGATIVE) Influenza B (RT-PCR) Flu b negative (NEGATIVE) 01/24/22 01/24/22 01/24/22 Range/Units 17:36 18:31 18:38 WBC 8.9 (4.5-11.0) X10^3/uL RBC 3.84 L (4.0-5.2) X10^6/uL Hgb 12.0 (12.0-16.0) g/dL Hct 35.2 L (36-46) % MCV 91.5 (80-100) fL MCH 31.3 (26-34) PG MCHC 34.2 (30-36) % RDW 13.1 (11.6-14.8) % Plt Count 211 (150-400) X10^3/uL Neut % (Auto) 73.0 (50-75) % Lymph % (Auto) 13.4 L (25-40) % Nance % (Auto) 12.9 (3-14) % Eos % (Auto) 0.4 L (2-4) % Baso % (Auto) 0.3 (0-2) % Neut # (Auto) 6500 (9300-4649) /uL Lymph # (Auto) 1200 (7747-9980) /uL Nance # (Auto) 1100 H (0-900) /uL Eos # (Auto) 0 (0-450) /uL Baso # (Auto) 0 (0-100) /uL Sodium (137-145) mmol/L Potassium (3.4-5.1) mmol/L Chloride (98-107) mmol/L Carbon Dioxide (22-32) mmol/L BUN (7-17) mg/dL Creatinine (0.52-1.04) mg/dL Estimated GFR (>60) mL/min BUN/Creatinine Ratio (6-22) Glucose (80-110) mg/dL Lactate 0.7 (0.7-2.1) mmol/L Calcium (8.4-10.2) mg/dL Total Bilirubin (0.2-1.3) mg/dL AST (14-36) IU/L ALT (<35) IU/L Alkaline Phosphatase (38-126) U/L Total Protein (6.3-8.2) g/dL Albumin (3.5-5.0) g/dL Globulin (1.7-4.1) g/dL Albumin/Globulin Ratio (1.0-2.8) Lipase (23-300) U/L Procalcitonin (<0.5) ng/mL Urine Color Yellow Urine Appearance Clear Urine pH 6.0 (4.5-8.0) Ur Specific [place] 1.010 (1.000-1.035) Urine Protein Negative (Negative) Urine Glucose (UA) Negative (Negative) g/dL Urine Ketones Trace H (NEGATIVE) Urine Occult Blood Trace-lysed (Negative) Urine Nitrate Negative (Negative) Urine Bilirubin Negative (NEGATIVE) Urine Urobilinogen 0.2 (0.2) E.U./dL Ur Leukocyte Esterase 1+ H (NEGATIVE) Urine RBC 0-1/hpf (0-5/HPF) Urine WBC 5-10/hpf H (0-5/HPF) Ur Squamous Epith Cells 5-10 /hpf H (0-5/HPF) Amorphous Sediment 1+ Urine Bacteria Occasional (0-1) (None) Ur Culture Indicated? Specimen cultured SARS-CoV-2 (PCR) (Negative) Influenza A (RT-PCR) (NEGATIVE) Influenza B (RT-PCR) (NEGATIVE) Urine Dip Bedside Urine Glucose Negative Bedside Urine Bilirubin - Negative Bedside Urine Ketone - Negative Urine Specific [place] 1.015 Bedside Urine Occult Blood - Negative Bedside Urine pH 6.0 Bedside Urine Protein - Negative Bedside Urine Urobilinogen +/- 1mg Bedside Urine Nitrite - Negative Bedside Urine Leukocytes + 70 Esterase MDM Narrative Medical decision making narrative: This is a 66-year-old female who presents to the emergency department status post COVID last month, complaining of headache since she tested positive for COVID on December 15, 2021, states it has gotten worse over the last 3 days and also has dysuria, urinary frequency and urgency. She reports subjective fever this morning, urinary frequency last night. Her UA today was positive for wbc's, leukocyte esterase, and ketones. Her COVID, influenza a and B, and RSV PCR was positive for COVID-19. Her lab work does not reveal any leukocytosis or anemia, hyponatremia with a sodium of 130, she does not have focal neuro deficit or neurologic changes. Potassium is 3.6, creatinine of 0.45. Her procalcitonin 0.04, lipase of 28, no elevation to her liver enzymes or T bilirubin. No lactic acidosis, her lactate is 0.7. She was given 1 L of normal saline, Zofran, Luis adryl, Tylenol and Toradol for her headache. She reports feeling much better afterwards. She was given 1 g of ceftriaxone for her acute cystitis, also given Pyridium. No peritoneal signs on abdominal exam. Patient remains p.o. tolerant. Serial abdominal exam without increase in abdominal pain. Given history and exam, low suspicion for acute abdominal process, such as acute cholecystitis, panc reatitis, perforated viscus, atypical appendicitis, colitis, diverticulitis or torsion. Extensive conversation about ER return precautions and need for close follow-up. She was treated with Paxlovid in December, no treatment for COVID is recommended at this time. Recommended [id number] supportive measures with Tylenol and ibuprofen as needed, Zyrtec for nasal congestion, Zofran for nausea, hydration and rest. I encourage close follow-up with her primary care provider or return to the emergency department for any worsening. Patient is appropriate and amenable to discharge home. Vital signs are stable on repeat examination is unremarkable. Patient has been informed of results. Patient has been given strict return to ER precautions for any new or worsening symptoms. Patient und erstands to follow up closely with outpatient providers as instructed. Patient understands plan and agrees to discharge home. All questions and concerns answered at this time. <Susan Musa DO - Last Filed: 01/25/22 07:43> Lab Data Labs: Lab Results 01/24/22 01/24/22 01/24/22 Range/Units 17:30 17:35 17:35 WBC (4.5-11.0) X10^3/uL RBC (4.0-5.2) X10^6/uL Hgb (12.0-16.0) g/dL Hct (36-46) % MCV (80-100) fL MCH (26-34) PG MCHC (30-36) % RDW (11.6-14.8) % Plt Count (150-400) X10^3/uL Neut % (Auto) (50-75) % Lymph % (Auto) (25-40) % Nance % (Auto) (3-14) % Eos % (Auto) (2-4) % Baso % (Auto) (0-2) % Neut # (Auto) (9293-4259) /uL Lymph # (Auto) (7938-1737) /uL Nance # (Auto) (0-900) /uL Eos # (Auto) (0-450) /uL Baso # (Auto) (0-100) /uL Sodium 130 L (137-145) mmol/L Potassium 3.6 (3.4-5.1) mmol/L Chloride 97 L (98-107) mmol/L Carbon Dioxide 23 (22-32) mmol/L BUN 8 (7-17) mg/dL Creatinine 0.45 L (0.52-1.04) mg/dL Estimated GFR > 60 (>60) mL/min BUN/Creatinine Ratio 17.8 (6-22) Glucose 123 H (80-110) mg/dL Lactate (0.7-2.1) mmol/L Calcium 8.8 (8.4-10.2) mg/dL Total Bilirubin 0.7 (0.2-1.3) mg/dL AST 25 (14-36) IU/L ALT 16 (<35) IU/L Alkaline Phosphatase 76 (38-126) U/L Total Protein 7.3 (6.3-8.2) g/dL Albumin 4.0 (3.5-5.0) g/dL Globulin 3.3 (1.7-4.1) g/dL Albumin/Globulin Ratio 1.2 (1.0-2.8) Lipase 28 (23-300) U/L Procalcitonin 0.04 (<0.5) ng/mL Urine Color Urine Appearance Urine pH (4.5-8.0) Ur Specific [place] (1.000-1.035) Urine Protein (Negative) Urine Glucose (UA) (Negative) g/dL Urine Ketones (NEGATIVE) Urine Occult Blood (Negative) Urine Nitrate (Negative) Urine Bilirubin (NEGATIVE) Urine Urobilinogen (0.2) E.U./dL Ur Leukocyte Esterase (NEGATIVE) Urine RBC (0-5/HPF) Urine WBC (0-5/HPF) Ur Squamous Epith Cells (0-5/HPF) Amorphous Sediment Urine Bacteria (None) Ur Culture Indicated? SARS-CoV-2 (PCR) Positive H (Negative) Influenza A (RT-PCR) Flu a negative (NEGATIVE) Influenza B (RT-PCR) Flu b negative (NEGATIVE) 01/24/22 01/24/22 01/24/22 Range/Units 17:36 18:31 18:38 WBC 8.9 (4.5-11.0) X10^3/uL RBC 3.84 L (4.0-5.2) X10^6/uL Hgb 12.0 (12.0-16.0) g/dL Hct 35.2 L (36-46) % MCV 91.5 (80-100) fL MCH 31.3 (26-34) PG MCHC 34.2 (30-36) % RDW 13.1 (11.6-14.8) % Plt Count 211 (150-400) X10^3/uL Neut % (Auto) 73.0 (50-75) % Lymph % (Auto) 13.4 L (25-40) % Nance % (Auto) 12.9 (3-14) % Eos % (Auto) 0.4 L (2-4) % Baso % (Auto) 0.3 (0-2) % Neut # (Auto) 6500 (5058-8689) /uL Lymph # (Auto) 1200 (3042-8404) /uL Nance # (Auto) 1100 H (0-900) /uL Eos # (Auto) 0 (0-450) /uL Baso # (Auto) 0 (0-100) /uL Sodium (137-145) mmol/L Potassium (3.4-5.1) mmol/L Chloride (98-107) mmol/L Carbon Dioxide (22-32) mmol/L BUN (7-17) mg/dL Creatinine (0.52-1.04) mg/dL Estimated GFR (>60) mL/min BUN/Creatinine Ratio (6-22) Glucose (80-110) mg/dL Lactate 0.7 (0.7-2.1) mmol/L Calcium (8.4-10.2) mg/dL Total Bilirubin (0.2-1.3) mg/dL AST (14-36) IU/L ALT (<35) IU/L Alkaline Phosphatase (38-126) U/L Total Protein (6.3-8.2) g/dL Albumin (3.5-5.0) g/dL Globulin (1.7-4.1) g/dL Albumin/Globulin Ratio (1.0-2.8) Lipase (23-300) U/L Procalcitonin (<0.5) ng/mL Urine Color Yellow Urine Appearance Clear Urine pH 6.0 (4.5-8.0) Ur Specific [place] 1.010 (1.000-1.035) Urine Protein Negative (Negative) Urine Glucose (UA) Negative (Negative) g/dL Urine Ketones Trace H (NEGATIVE) Urine Occult Blood Trace-lysed (Negative) Urine Nitrate Negative (Negative) Urine Bilirubin Negative (NEGATIVE) Urine Urobilinogen 0.2 (0.2) E.U./dL Ur Leukocyte Esterase 1+ H (NEGATIVE) Urine RBC 0-1/hpf (0-5/HPF) Urine WBC 5-10/hpf H (0-5/HPF) Ur Squamous Epith Cells 5-10 /hpf H (0-5/HPF) Amorphous Sediment 1+ Urine Bacteria Occasional (0-1) (None) Ur Culture Indicated? Specimen cultured SARS-CoV-2 (PCR) (Negative) Influenza A (RT-PCR) (NEGATIVE) Influenza B (RT-PCR) (NEGATIVE) Urine Dip Bedside Urine Glucose Negative Bedside Urine Bilirubin - Negative Bedside Urine Ketone - Negative Urine Specific [place] 1.015 Bedside Urine Occult Blood - Negative Bedside Urine pH 6.0 Bedside Urine Protein - Negative Bedside Urine Urobilinogen +/- 1mg Bedside Urine Nitrite - Negative Bedside Urine Leukocytes + 70 Esterase Discharge Plan Departure Patient Disposition: Home Clinical Impression: COVID-19, Headache, Acute cystitis Instructions: Acute Cystitis, DI for Headache, COVID-19 Activity Restrictions/Additional Instructions: *You have been diagnosed with ongoing COVID illness. I am sorry. Your PCR was positive today and I suspect your headache is related to this but could also be related to your urinary tract infection. Please continue to stay hydrated with electrolyte fluids, your sodium was low today but not dangerously low. Please continue to try and eat food and keep your thankful with plenty of drinks. Please take this antibiotic twice a day starting tomorrow for your urinary tract infection. I have given Zofran to use for nausea, also for headache, please take a Zofran with Tylenol and ibuprofen, drink a glass of water and go rest. If your headache is severe, take Benadryl also and rest. I hope that you start feeling better soon, please return for any new or worsening symptoms but at least this is a good explanation for why you might be having this pain ongoing. Your urinary tract infection was treated tonight so you do not need anymore antibiotics tonight. *What to do: *Please continue to take your regular medications as directed. [x ] New medication prescriptions sent to your pharmacy: [ [facility]] [ ] New medication written as a paper prescription [ ] No new medications given *Please follow up with your primary care provider in 2-3 days, call for an appointment. Let them know you were seen in the Emergency Department and that we asked that you be seen for follow-up. We will electronically transmit a record of today's note if your PCP is in our system *If you do not have a primary care provider please contact [phone] to [email or web address] with one of the [facility] primary care providers. *Return to Emergency Department if you should have any new, worsening, or concerning symptoms, such as [fever greater than 101F, chills, worsening pain, persistent vomiting or other bothersome symptoms]. Prescriptions: New cephalexin 500 mg capsule 500 mg PO QID 5 Days Qty: 20 0RF phenazopyridine [Pyridium] 100 mg tablet 100 mg PO TID PRN (Reason: pain) Qty: 7 0RF ondansetron 4 mg tablet,disintegrating 4 mg PO Q8H PRN (Reason: nausea and vomiting/ headache) Qty: 10 0RF No Action cyanocobalamin (vitamin B-12) 1,000 MCG tablet extended release 1,000 mcg PO Qty: 0 cholecalciferol (vitamin D3) [Vitamin D3] 2,000 UNIT tablet 1 tab PO QDAY Qty: 0 [docusate sodium] Qty: 0 estradiol 10 mcg tablet See Rx Instructions .ROUTE .COMPLEX Qty: 30 6RF Dose Instruction: INSERT ONE TABLET VAGINALLY DAILY AT BEDTIME Rx Instructions: INSERT ONE TABLET VAGINALLY DAILY AT BEDTIME albuterol sulfate 90 mcg/actuation HFA aerosol inhaler See Rx Instructions .ROUTE .COMPLEX Qty: 18 3RF Dose Instruction: INHALE 2 PUFFS BY MOUTH EVERY 4 HOURS NEEDED FOR SHORTNESS OF BREATH OR WHEEZING Rx Instructions: INHALE 2 PUFFS BY MOUTH EVERY 4 HOURS NEEDED FOR SHORTNESS OF BREATH OR WH EEZING Paxlovid (EUA) 300 mg (150 mg x 2)-100 mg tablets,dose pack See Rx Instructions PO .COMPLEX Qty: 30 0RF Rx Instructions: take TWO 150 mg tablets of nirmatrelvir with ONE 100 mg tablet of ritonavir twice daily for 5 days PO oxycodone-acetaminophen [Percocet] 5-325 mg tablet 1 tab PO Q8H PRN (Reason: pain) Qty: 10 0RF Referrals: Pat Deng DO [Primary Care Provider] - Visit Report Forms: Patient Portal/API <Susan Musa DO - Last Filed: 01/25/22 07:43> Cosign ED Attending Clarisseature Attestation: I was immediately available in the department for consultation. Documentation has been reviewed. I agree with assessment and plan.
[2022-01-24 19:03] VITALS: BP 175/85
[2022-01-24 19:05] LABS: Lipase 28 U/L (23-300)
[2022-01-24 19:05] LABS: Appearance Urine UA CLEAR; Bilirubin Urine UA NEGATIVE (NEGATIVE); Color Urine UA YELLOW; Glucose Urine UA NEGATIVE (Negative); Ketones Urine UA TRACE (NEGATIVE); Leukocyte Esterase Urine UA 1+ (NEGATIVE); Nitrite Urine UA NEGATIVE (Negative); Occult Blood Urine UA TRACE-LYSED (Negative); Protein Urine UA NEGATIVE (Negative); Urobilinogen Urine UA 0.2 E.U./dL (0.2)
[2022-01-24 19:11] LABS: RBC Urine 0-1/HPF (0-5/HPF)
[2022-01-24 19:12] LABS: Amorphous Sediment Urine 1+; Bacteria Urine Occasional (0-1); Culture Indicated Urine Specimen Cultured; Squamous Epithelial Cell Urine 5-10 /HPF (0-5/HPF); WBC Urine 5-10/HPF (0-5/HPF)
[2022-01-24] MEDS: SODIUM CHLORIDE 0.9% 1,000 ML 1000 ML IV (19:16)
[2022-01-24 19:20] LABS: Lactate (Lactic Acid) 0.7 mmol/L (0.7-2.1)
[2022-01-24 19:22] LABS: Procalcitonin 0.04 ng/mL (<0.5)
[2022-01-24 19:30] VITALS: BP 143/76
[2022-01-24 19:42] VITALS: O2SAT 81
[2022-01-24 20:00] VITALS: BP 132/72; PULSE 66; O2SAT 98
[2022-01-24 20:30] VITALS: BP 132/65; PULSE 66; O2SAT 97
== END 2022-01-24 20:54 | disposition home or self-care (01) ==
PROVIDERS: Emergency Medicine; Emergency Provider Nurse Practitioner Critical Care Medicine; PCP Family Medicine
DX: U07.1 COVID-19 (principal); R51.9 Headache, unspecified; N30.00 Acute cystitis without hematuria
CPT/HCPCS: 36415; 80053; 81001; 81003; 83605; 83690; 84145; 85025; 87086; 87635; 96365; 96375; 99284; C9803; J0696; J1200; J1885; J2405

== ENCOUNTER → 2022-03-13 12:51 | Outpatient (CLI) | payer MEDICARE, OTHER, SELFPAY ==
--- NOTE | 2022-03-13 | DI.CT.S_ITS ---
PROCEDURE: CT SINUS SCREEN WO CON INDICATIONS: Other acute recurrent sinusitis TECHNIQUE: Noncontrast 3.0 mm axial images acquired from the frontal sinuses to the mid-sella, with coronal and sagittal reformats. For radiation dose reduction, the following was used: automated exposure control, adjustment of mA and/or kV according to patient size. COMPARISON: None. FINDINGS: Image quality: Excellent. Maxillary Sinuses: The medial [place] of the maxillary sinuses have been removed. Sinuses are clear. Ethmoid Air Cells: No bony remodeling or destruction. Sinuses are clear. Sphenoid Sinuses: No bony remodeling or destruction. Sinuses are clear. Frontal Sinuses: No bony remodeling or destruction. Sinuses are clear. Ostiomeatal Complexes: Removed. Miscellaneous: Visualized intra-orbital contents are normal. A portion of the right middle turbinate has been removed. There is mild leftward nasal septal deviation, with a leftward directed bony nasal septal spur. IMPRESSION: No significant active paranasal sinus disease can be seen. Prior postoperative change, with bilateral antrectomy. Mild leftward nasal septal deviation. Dictated by: Jose Staley M.D. on 03/13/2022 at 12:13 Approved by: Jose Staley M.D. on 03/13/2022 at 12:14
== END ==
PROVIDERS: PCP Family Medicine; Referring Provider Otolaryngology; Visit Provider Otolaryngology
DX: J32.4 Chronic pansinusitis (principal); R51.9 Headache, unspecified; R09.82 Postnasal drip; J01.81 Other acute recurrent sinusitis; J34.2 Deviated nasal septum
CPT/HCPCS: 70486

== ENCOUNTER → 2022-03-13 12:54 | Outpatient (CLI) | payer MEDICARE, OTHER, SELFPAY ==
[2022-03-13 15:23] LABS: Add Manual Diff / Slide Review NO; Basophils Absolute Auto 100 /uL (0-100); Basophils Percent Auto 1.3 % (0-2); Eosinophils Absolute Auto 100 /uL (0-450); Eosinophils Percent Auto 2.5 % (2-4); Hematocrit 37.2 % (36-46); Hemoglobin 12.6 g/dL (12.0-16.0); Lymphocytes Absolute Auto 2300 /uL (1100-4500); Lymphocytes Percent Auto 37.8 % (25-40); Mean Corpuscular HGB Conc 33.9 % (30-36); Mean Corpuscular Hemoglobin 30.8 PG (26-34); Mean Corpuscular Volume 90.8 fL (80-100); Monocytes Absolute Auto 400 /uL (0-900); Neutrophils Absolute Auto 3200 /uL (1500-7000); Neutrophils Percent Auto 52.4 % (50-75); Platelet Count 293 X10^3/uL (150-400); Red Blood Cell Count 4.09 X10^6/uL (4.0-5.2)
[2022-03-13 16:47] LABS: Alanine Aminotransferase 21 IU/L (<35); Albumin 4.5 g/dL (3.5-5.0); Albumin Globulin Ratio 1.6 (1.0-2.8); Alkaline Phosphatase 77 U/L (38-126); Aspartate Aminotransferase 29 IU/L (14-36); BUN Creatinine Ratio 21.8 (6-22); Bilirubin Total 0.4 mg/dL (0.2-1.3); Blood Urea Nitrogen 12 mg/dL (7-17); C-Reactive Protein Quant < 0.5 mg/dL (<1.0); Calcium 9.2 mg/dL (8.4-10.2); Carbon Dioxide 29 mmol/L (22-32); Chloride 98 mmol/L (98-107); Estimated Glomerular Filt Rate > 60 mL/min (>60); Globulin 2.9 g/dL (1.7-4.1); Glucose 83 mg/dL (80-110); HEMOLYSIS < 15 (0-50); Potassium 3.8 mmol/L (3.4-5.1); Sodium 138 mmol/L (137-145); Total Protein 7.4 g/dL (6.3-8.2)
[2022-03-13 18:00] LABS: TSH w/ Reflex to FT4 3.22 uIU/mL (0.47-4.68)
== END ==
PROVIDERS: PCP Family Medicine; Referring Provider Family Medicine; Visit Provider Family Medicine
DX: R53.83 Other fatigue (principal); J01.81 Other acute recurrent sinusitis; J32.4 Chronic pansinusitis; R51.9 Headache, unspecified; R09.82 Postnasal drip
CPT/HCPCS: 36415; 70486; 80053; 84443; 85025; 86140

== ENCOUNTER → 2022-04-10 07:57 | Outpatient (CLI) | payer MEDICARE, OTHER, SELFPAY ==
--- NOTE | 2022-04-10 08:05 | DI.ECHO.S_ITS ---
Interpretation Summary The left ventricle is normal in size and wall thickness. Left ventricular systolic function appears normal without focal wall motion abnormalities. The ejection fraction is estimated to be 50-55%. Diastolic parameters suggest a relaxation abnormality of the left ventricle, consistent with probable normal filling pressures. The right ventricle is normal in size and function. Pulmonary artery pressures cannot be estimated because of the lack of a measurable TR jet velocity. The left atrium is mildly dilated. Right atrial size is normal. There is no significant valvular heart disease. The ascending aorta is mild-moderately enlarged. Procedure: A two-dimensional transthoracic echocardiogram with color flow and Doppler was performed. The study quality was technically adequate. There is no prior echocardiogram noted for this patient. The patient was in sinus bradycardia with heart rates between 58-64 bpm during the exam. Left Ventricle: The left ventricle is normal in size and wall thickness. Left ventricular systolic function appears normal without focal wall motion abnormalities. The ejection fraction is estimated to be 50-55%. Diastolic parameters suggest a relaxation abnormality of the left ventricle, consistent with probable normal filling pressures. Right Ventricle: The right ventricle is normal in size and function. Atria: The left atrium is mildly dilated. Right atrial size is normal. There is no Doppler evidence for an interatrial shunt. Mitral Valve: The mitral valve leaflets appear borderline thickened, but open well. There is mild mitral regurgitation. Aortic Valve: The aortic valve is trileaflet. The aortic valve opens well. There is no aortic valve stenosis. There is trace aortic regurgitation. Tricuspid Valve: The tricuspid valve is normal in structure and function. There is trace tricuspid regurgitation. Pulmonary artery pressures cannot be estimated because of the lack of a measurable TR jet velocity. Pulmonic Valve: The pulmonic valve leaflets are thin and pliable; valve motion is normal. There is no pulmonic valvular regurgitation. There is no significant valvular heart disease. Great Vessels: The aortic root is normal size. The ascending aorta is mildmoderately enlarged. The IVC is of normal diameter and collapses greater than 50% with a sniff. This suggests a low right atrial pressure of 3 mm Hg. Pericardium/ Pleura There is no pericardial effusion. There is no pleural effusion. MMode/2D Measurements & Calculations LVIDd: 4.6 cm LVOT diam: 2.0 cm LVIDs: 3.3 cm Ao root diam: 3.2 cm FS: 27.4 % asc Aorta Diam: 4.0 cm EPSS: 0.72 cm Ao Arch Diam (Prox Trans): 2.8 cm IVSd: 0.81 cm LVPWd: 0.86 cm LV duffy. diameter/BSA (cm/m^2): 2.8 LV sys. diameter/BSA (cm/m^2): 2.0 LA A2 area: 18.0 cm2 RA long axis: 5.2 cm LA A4 area: 18.8 cm2 RA area: 18.0 cm2 LA length (vol): 5.1 cm RA vol: 53.3 ml LA vol: 56.1 ml RA : 32.6 ml/m2 LA vol index: 34.3 ml/m2 IVC diam: 1.5 cm RVD1 (basal): 3.5 cm RVD2 (mid): 3.0 cm TAPSE: 2.3 cm Doppler Measurements & Calculations Ao V2 max: 129.8 cm/sec LVOT Max Mayo: 79.9 cm/sec Ao V2 mean: 94.0 cm/sec LV V1 max P.6 mmHg Ao max P.7 mmHg LV V1 VTI: 18.4 cm Ao mean P.9 mmHg RACEHL(I,D): 2.0 cm2 Ao V2 VTI: 29.0 cm RACHEL(V,D): 1.9 cm2 sev ratio: 0.63 RACHEL indexed to BSA (cm^2/m^2): 1.2 MV E max mayo: 69.5 cm/sec PA V2 max: 83.9 cm/sec MV A max mayo: 87.4 cm/sec PA V2 mean: 62.5 cm/sec MV E/A: 0.80 PA mean P.7 mmHg Med Peak E' Mayo: 6.6 cm/sec PA pr(Accel): 24.2 mmHg E/E' med: 10.6 Lat Peak E' Mayo: 7.8 cm/sec E/E' lat: 9.0 E/e' average: 9.8 MV dec time: 0.25 sec SV(LVOT): 56.6 ml Reading Physician:06:07 PM
== END ==
PROVIDERS: PCP Family Medicine; Referring Provider Family Medicine; Visit Provider Family Medicine
DX: I34.0 Nonrheumatic mitral (valve) insufficiency (principal); I77.89 Other specified disorders of arteries and arterioles; R06.02 Shortness of breath
CPT/HCPCS: 93306

== ENCOUNTER → 2022-04-28 12:39 | Outpatient (CLI) | payer MEDICARE, OTHER, SELFPAY ==
--- NOTE | 2022-04-28 12:41 | DI.MRI.S_ITS ---
PROCEDURE: MR SHOULDER RT WO CON INDICATIONS: right shoulder pain, restricted ROM TECHNIQUE: Noncontrast oblique coronal T2 fast spin echo with fat saturation, oblique sagittal T1 spin echo and T2 fast spin echo with fat saturation, axial T1 spin echo and T2 fast spin echo with fat saturation through the shoulder. COMPARISON: [facility], CR, XR SHOULDER 2+ VIEWS RIGHT, 03/29/2022, 13:48. FINDINGS: Image quality: Excellent. Rotator cuff: Distal supraspinatus and infraspinatus tendinosis and very low-grade articular surface partial-thickness tear involving distal supraspinatus at its insertion on the humeral head is seen. Tendinosis and low-grade intrasubstance partial-thickness tear involving distal subscapularis. No full-thickness rotator cuff tendon rupture. Sagittal images demonstrate no significant muscle atrophy. Bones and bursae: Mild to moderate acromioclavicular joint osteoarthritic changes are seen. Mild to moderate glenohumeral joint osteoarthritic changes also noted. Subacute appearing comminuted fracture involving proximal humeral shaft/surgical neck with fracture lines extending to greater and lesser tuberosities with minimal impaction at fracture site. [id number] amount of marrow edema is seen adjacent to fracture site. No other fracture or dislocation is seen. No significant subacromial subdeltoid bursal fluid. Capsule and soft tissues: Subtle signal abnormality and contour irregularity involving anterior inferior labrum at 5 to 6 o'clock position is seen suggestive of anterior-inferior labral tear. The long head of the biceps tendon is thickened. The rotator interval appears normal, without fibrosis. The coracohumeral ligament is normal in thickness. IMPRESSION: 1. Distal supraspinatus and infraspinatus tendinosis with very low-grade articular surface partial-thickness tear involving distal supraspinatus. Low-grade intrasubstance partial-thickness tear involving distal subscapularis. No full-thickness rotator cuff tendon rupture. No significant muscle atrophy. 2. Subacute appearing impacted and slightly comminuted proximal humeral fracture as above. Onph-cm-[id number] acromioclavicular joint and glenohumeral joint osteoarthritis. 3. Suggestion of anterior-inferior labral tear at 5 to 6 o'clock position. 4. Proximal intra-articular portion of long head of biceps tendinosis. Dictated by: Neno Kemp M.D. on 04/30/2022 at 8:22 Approved by: Neno Kemp M.D. on 04/30/2022 at 8:31
== END ==
PROVIDERS: PCP Family Medicine; Referring Provider Family Medicine; Visit Provider Family Medicine
DX: S42.211A Unspecified displaced fracture of surgical neck of right humerus, initial encounter for closed fracture (principal); M75.111 Incomplete rotator cuff tear or rupture of right shoulder, not specified as traumatic; M25.511 Pain in right shoulder; M19.011 Primary osteoarthritis, right shoulder
CPT/HCPCS: 73221

== ENCOUNTER → 2022-06-13 | Outpatient (CLI) | payer MEDICARE, OTHER, SELFPAY ==
--- NOTE | 2022-06-13 12:48 | DI.RAD.S_ITS ---
PROCEDURE: XR DEXA AXIAL SKELETON INDICATIONS: osteopenia with fracture of unk cause COMPARISON: [facility], CR, XR DEXA AXIAL SKELETON, 03/23/2021, 10:11. FINDINGS: This blank DEXA report has been sent in error by the PACS system. The correct and complete report will be forthcoming in 1-2 days. Thank you for your patience and understanding. Dictated by: Ruslan Lowe M.D. on 06/15/2022 at 8:15 Approved by: Ruslan Lowe M.D. on 06/15/2022 at 8:15
== END ==
PROVIDERS: PCP Family Medicine; Referring Provider Family Medicine; Visit Provider Family Medicine
DX: M85.88 Other specified disorders of bone density and structure, other site (principal); Z78.0 Asymptomatic menopausal state; S42.294S Other nondisplaced fracture of upper end of right humerus, sequela; E55.9 Vitamin D deficiency, unspecified; Z92.23 Personal history of estrogen therapy
CPT/HCPCS: 77080

== ENCOUNTER → 2022-12-18 14:17 | Outpatient (CLI) | payer MEDICARE, OTHER, SELFPAY ==
--- NOTE | 2022-12-18 14:18 | DI.MG.S_ITS ---
BILATERAL DIGITAL SCREENING MAMMOGRAM 3D/2D WITH CAD: 12/18/2022 CLINICAL: Routine screening. Family history of breast cancer. Comparison is made to exams dated: 11/28/2021 mammogram, 11/22/2020 mammogram - [facility], 11/05/2019 mammogram - [facility], and 10/28/2019 mammogram - [facility]. There are scattered areas of fibroglandular density in both breasts (category b / 25%-50% glandular tissue). Current study was also evaluated with a Computer Aided Detection (CAD) system. There is a biopsy clip in the left breast. No significant masses, calcifications, or other findings are seen in either breast. There has been no significant interval change. IMPRESSION: NEGATIVE There is no mammographic evidence of malignancy. A 1 year screening mammogram is recommended. Based on the Tyrer Cuzick model (a risk assessment model) the patient's lifetime risk is 13.4% and her 10 year risk is 7.5%. According to the ACR, ACS, and NCCN guidelines, an annual breast MRI exam along with mammogram is recommended if the patient's lifetime risk is 20% or greater. This exam was interpreted at Station ID: [id number]. NOTE: For mammograms, a report in lay terms will be sent to the patient. Approximately 15% of breast malignancies will not be visualized mammographically. In the management of a palpable breast mass, a negative mammogram must not discourage biopsy of a clinically suspicious lesion. Electronically Signed By: Deb sargent/kam:12/18/2022 18:08:02 letter sent: Normal Exam ACR BI-RADS Category 1: Negative [id number]
== END ==
PROVIDERS: PCP Family Medicine; Referring Provider Family Medicine; Visit Provider Family Medicine
DX: Z12.31 Encounter for screening mammogram for malignant neoplasm of breast (principal); Z80.3 Family history of malignant neoplasm of breast
CPT/HCPCS: 77063; 77067

== ENCOUNTER → 2023-02-22 07:30 | Outpatient (CLI) | payer MEDICARE, OTHER, SELFPAY ==
[2023-02-22 08:30] LABS: Hemoglobin A1C% w Est Avg Glu 5.6 % (4.0-6.0)
[2023-02-22 08:39] LABS: Add Manual Diff / Slide Review NO; Basophils Absolute Auto 100 /uL (0-100); Basophils Percent Auto 1.7 % (0-2); Eosinophils Absolute Auto 100 /uL (0-450); Hematocrit 37.2 % (36-46); Hemoglobin 12.7 g/dL (12.0-16.0); Lymphocytes Absolute Auto 1500 /uL (1100-4500); Lymphocytes Percent Auto 37.1 % (25-40); Mean Corpuscular HGB Conc 34.1 % (30-36); Mean Corpuscular Hemoglobin 31.6 PG (26-34); Mean Corpuscular Volume 92.5 fL (80-100); Monocytes Absolute Auto 400 /uL (0-900); Monocytes Percent Auto 9.5 % (3-14); Neutrophils Absolute Auto 1900 /uL (1500-7000); Neutrophils Percent Auto 48.7 % (50-75); Platelet Count 201 X10^3/uL (150-400); Red Blood Cell Count 4.02 X10^6/uL (4.0-5.2); Red Cell Distribution Width 12.4 % (11.6-14.8)
[2023-02-22 08:42] LABS: Alanine Aminotransferase 23 IU/L (<35); Albumin 4.2 g/dL (3.5-5.0); Albumin Globulin Ratio 1.6 (1.0-2.8); Alkaline Phosphatase 52 U/L (38-126); Aspartate Aminotransferase 32 IU/L (14-36); BUN Creatinine Ratio 15.4 (6-22); Bilirubin Total 0.7 mg/dL (0.2-1.3); Blood Urea Nitrogen 10 mg/dL (7-17); C-Reactive Protein Quant < 0.5 mg/dL (<1.0); Calcium 9.5 mg/dL (8.4-10.2); Carbon Dioxide 29 mmol/L (22-32); Chloride 105 mmol/L (98-107); Estimated Glomerular Filt Rate > 60 mL/min (>60); Globulin 2.7 g/dL (1.7-4.1); Glucose 86 mg/dL (80-110); HEMOLYSIS < 15 (0-50); Potassium 4.1 mmol/L (3.4-5.1); Sodium 137 mmol/L (137-145); Total Protein 6.9 g/dL (6.3-8.2)
[2023-02-22 09:39] LABS: Hep C Virus Ab w/Reflex Quant NEGATIVE s/c (NEGATIVE)
[2023-02-23 21:38] LABS: IgA 134 mg/dL (87-352); t-Transglutaminase IgA <2 U/mL (0-3)
[2023-02-25 10:58] LABS: Interpretation Positive (Negative)
== END ==
PROVIDERS: PCP Family Medicine; Referring Provider Family Medicine; Visit Provider Family Medicine
DX: K59.09 Other constipation (principal); E53.8 Deficiency of other specified B group vitamins; Z86.010 Personal history of colon polyps; M85.80 Other specified disorders of bone density and structure, unspecified site; E55.9 Vitamin D deficiency, unspecified
CPT/HCPCS: 36415; 80053; 82784; 83013; 83036; 83516; 85025; 86140; 86803

== ENCOUNTER 2023-03-10 08:46 | Emergency (ER) | payer MEDICARE, OTHER, SELFPAY ==
[2023-03-10 08:55] VITALS: BP 160/80; PULSE 65; O2SAT 98
[2023-03-10 08:57] VITALS: BP 160/80; PULSE 64; RESP 16; TEMP 36.4; O2SAT 98; BMI 23.9
[2023-03-10 09:00] VITALS: BP 148/86; PULSE 67; RESP 20; O2SAT 99
--- NOTE | 2023-03-10 09:10 | ED_ITS ---
HPI - Nausea/Vomiting/Diarrhea General Chief complaint: Nausea/Vomiting/Diarrhea Stated complaint: REACTION TO ANTIBIOTICS,VOMITING Time Seen by Provider: 03/10/23 08:53 Source: patient Mode of arrival: Ambulatory Limitations: no limitations History of Present Illness HPI Narrative: Patient is a 67-year-old female. Three days ago she started quad treatment for H pylori. Is on metronidazole, omeprazole, bismuth and tetracycline. She states that since she started taking the medicine she is had nausea and vomiting. She is allergic to penicillin. No skin rashes. No problems breathing. Related Data Home Medications Medication Instructions Recorded Confirmed cholecalciferol (vitamin D3) 50 1 tab PO QDAY ##0 02/27/16 03/06/23 mcg (2,000 unit) tablet (Vitamin D3) cyanocobalamin (vitamin B-12) 1,000 mcg PO ##0 02/27/16 03/06/23 1,000 mcg tablet,extended release [docusate sodium] ##0 07/16/17 03/06/23 Previous Rx's Medication Instructions Recorded albuterol sulfate 90 mcg/actuation See Rx Instructions .Route 12/04/21 aerosol inhaler .COMPLEX #18 grams ondansetron 4 mg disintegrating 4 mg PO Q8H PRN nausea and 01/24/22 tablet vomiting/ headache #10 tabs phenazopyridine 100 mg tablet 100 mg PO TID PRN pain 6 doses #7 01/24/22 (Pyridium) tabs estradiol 10 mcg vaginal tablet 10 mcg vaginal ONCE PM #30 tabs 12/11/22 bismuth subsalicylate 525 mg tablet 525 mg PO Q30M 14 days #56 tabs 03/06/23 metronidazole 500 mg tablet 500 mg PO QID 14 days #56 tabs 03/06/23 omeprazole 40 mg capsule,delayed 40 mg PO BID 14 days #28 caps 03/06/23 release tetracycline 500 mg capsule 500 mg PO QID 14 days #56 caps 03/06/23 ondansetron 4 mg disintegrating 4 mg PO Q6H PRN nausea and 03/10/23 tablet vomiting #14 tabs Allergies Allergy/AdvReac Type Severity Reaction Status Date / Time Iodinated Contrast Media Allergy Severe Rash Verified 03/06/23 16:19 [Iodinated Contrast- Oral and IV Dye] Penicillins [PENICILLINS] Allergy Mild Verified 03/06/23 16:19 Sulfa (Sulfonamide Allergy Mild RASH Verified 03/06/23 16:19 Antibiotics) [SULFA (SULFONAMIDE ANTIBIOTICS)] Review of Systems Constitutional Constitutional: Reports system reviewed and no additional complaints, except as documented Cardiovascular Cardiovascular: Reports system reviewed and no additional complaints, except as documented Respiratory Respiratory: Reports system reviewed and no additional complaints, except as documented Gastrointestinal Gastrointestinal: Reports system reviewed and no additional complaints, except as documented Genitourinary Genitourinary: Reports system reviewed and no additional complaints, except as documented Integumentary/Breasts Skin/Breast: Reports system reviewed and no additional complaints, except as documented Hematologic/Lymphatic On Anticoagulants: No Allergic/Immunologic Allergic/Immunologic: Reports system reviewed and no additional complaints, except as documented Patient History Medical History COVID-19 Right humeral fracture Ascending aorta enlargement Chicken pox (1959) Measles (~1960) Mumps (1959) Rubella (1959) Plantar warts (1974) Depression (1988) Hayfever Osteoarthritis Colon polyps Tinnitus (1974) 4 para 4 TSS (toxic shock syndrome) (2003) Surgical History History of colonoscopy with polypectomy (03/17/14) Anesthesia History of eye surgery (1963) History of tonsillectomy (1960) Status post endometrial ablation (2004) Family History Father Lung cancer Grandfather No problems noted. Grandmother Heart disease Mother Breast cancer Grandfather No problems noted. Grandmother No problems noted. Sister No problems noted. Social History Smoking Status: Never smoker alcohol intake: current Smoking Status: Never smoker alcohol intake frequency: 0-2 drinks per day Substance Use Type: does not use Exam Initial Vital Signs Initial Vital Signs: Vital Signs Pulse Rate 65 03/10/23 08:55 Blood Pressure 160/80 H 03/10/23 08:55 Pulse Oximetry 98 03/10/23 08:55 Const General: cooperative, comfortable and No ill appearing HENMT Head: normal to inspection and normocephalic Resp Effort & Inspection: normal respiratory effort Cardio Rate: regular rate GI Inspection: non-distended Skin General: no rashes or lesions noted Neuro General: patient alert, patient awake and moves all extremities Extrem General: normal to inspection and capillary refill normal Course Orders Ordered: ED Orders 03/10/23 08:58 Basic Metabolic Panel Stat Complete Blood Count AUTO DIFF Stat Discontinued Medications Sodium Chloride (Normal Saline 0.9%) 1,000 mls @ 1,000 mls/hr IV BOLUS ONE Stop: 03/10/23 10:09 Last Infusion: 03/10/23 10:21 Dose: Infused Documented By: Admin: 03/10/23 09:20 Dose: 1,000 mls/hr Documented By: ANTWAN Ondansetron HCl (Ondansetron 4 Mg/2 Ml Inj) 4 mg IV NOW ONE Stop: 03/10/23 09:21 Last Admin: 03/10/23 09:23 Dose: 4 mg Documented By: HAKAN Vital Signs Vital signs: Vital Signs - 8 hr 03/10/23 08:55 03/10/23 08:55 03/10/23 08:57 Temperature 97.6 F Pulse Rate 65 64 Respiratory Rate 16 Blood Pressure 160/80 H 160/80 H Pulse Oximetry 98 98 Oxygen Delivery Method Room Air 03/10/23 09:00 03/10/23 09:00 03/10/23 09:30 Temperature Pulse Rate 67 Respiratory Rate 20 Blood Pressure 148/86 H 152/72 H Pulse Oximetry 99 Oxygen Delivery Method 03/10/23 09:30 03/10/23 10:00 03/10/23 10:00 Temperature Pulse Rate 58 L 56 L Respiratory Rate 16 14 Blood Pressure 148/65 H Pulse Oximetry 96 97 Oxygen Delivery Method MDM - Nausea/Vomiting/Diarrhea Medical Records Attestation: I reviewed the patient's medical records. Lab Data Attestation: I reviewed the patient's lab results. 03/10/23 08:58 03/10/23 08:58 Labs: Lab Results 03/10/23 Range/Units 08:58 WBC 6.9 (4.5-11.0) X10^3/uL RBC 4.21 (4.0-5.2) X10^6/uL Hgb 13.2 (12.0-16.0) g/dL Hct 38.6 (36-46) % MCV 91.6 (80-100) fL MCH 31.4 (26-34) PG MCHC 34.2 (30-36) % RDW 12.4 (11.6-14.8) % Plt Count 223 (150-400) X10^3/uL Neut % (Auto) 76.2 H (50-75) % Lymph % (Auto) 17.6 L (25-40) % Kaufman % (Auto) 4.8 (3-14) % Eos % (Auto) 0.6 L (2-4) % Baso % (Auto) 0.8 (0-2) % Neut # (Auto) 5200 (6881-0531) /uL Lymph # (Auto) 1200 (7832-2209) /uL Kaufman # (Auto) 300 (0-900) /uL Eos # (Auto) 0 (0-450) /uL Baso # (Auto) 100 (0-100) /uL Sodium 132 L (137-145) mmol/L Potassium 3.5 (3.4-5.1) mmol/L Chloride 99 (98-107) mmol/L Carbon Dioxide 25 (22-32) mmol/L BUN 12 (7-17) mg/dL Creatinine 0.57 (0.52-1.04) mg/dL Estimated GFR > 60 (>60) mL/min BUN/Creatinine Ratio 21.1 (6-22) Glucose 119 H (80-110) mg/dL Calcium 9.5 (8.4-10.2) mg/dL MDM Narrative Medical decision making narrative: I suspect that the patient's symptoms today are not an allergic reaction to her medicines but more of side effects specifically given the Flagyl in the tetracycline. Her last dose of these medicines was approximately 24 hours ago. She was feeling a little bit better after fluids here in the ER. Her electrolytes are unremarkable. Plan will be for her to stop these medications. Will have her contact the ordering provider tomorrow to discuss other alternatives. Will send home with a prescription for Zofran. We discussed return precautions. Encouraged fluid intake and advance diet as tolerated. Patient expressed understanding and agreement. Discharge Plan Departure Patient Disposition: Home Clinical Impression: Nausea and vomiting Instructions: Nausea and Vomiting-Adult Activity Restrictions/Additional Instructions: I do recommend that you stop the medications that were prescribed to you for the H pylori. Use the Zofran that was prescribed to you today as needed. Tomorrow contact your primary doctor for a follow-up and to discuss alternatives. Recommend that you increase your fluid intake by drinking small amounts more frequently. Return to the emergency department for new symptoms. Prescriptions: New ondansetron 4 mg tablet,disintegrating 4 mg PO Q6H PRN (Reason: nausea and vomiting) Qty: 14 0RF No Action bismuth subsalicylate 525 mg tablet 525 mg PO Q30M 14 Days Qty: 56 0RF metronidazole 500 mg tablet 500 mg PO QID 14 Days Qty: 56 0RF tetracycline 500 mg capsule 500 mg PO QID 14 Days Qty: 56 0RF omeprazole 40 mg capsule,delayed release(DR/EC) 40 mg PO BID 14 Days Qty: 28 0RF cyanocobalamin (vitamin B-12) 1,000 MCG tablet extended release 1,000 mcg PO Qty: 0 cholecalciferol (vitamin D3) [Vitamin D3] 2,000 UNIT tablet 1 tab PO QDAY Qty: 0 [docusate sodium] Qty: 0 albuterol sulfate 90 mcg/actuation HFA aerosol inhaler See Rx Instructions .ROUTE .COMPLEX Qty: 18 3RF Dose Instruction: INHALE 2 PUFFS BY MOUTH EVERY 4 HOURS NEEDED FOR SHORTNESS OF BREATH OR WHEEZING Rx Instructions: INHALE 2 PUFFS BY MOUTH EVERY 4 HOURS NEEDED FOR SHORTNESS OF BREATH OR WHEEZING estradiol 10 mcg tablet 10 mcg vaginal ONCE PM Qty: 30 0RF Rx Instructions: please notify patinet, last fill-needs to establish care with new PCP phenazopyridine [Pyridium] 100 mg tablet 100 mg PO TID PRN (Reason: pain) Qty: 7 0RF ondansetron 4 mg tablet,disintegrating 4 mg PO Q8H PRN (Reason: nausea and vomiting/ headache) Qty: 10 0RF Referrals: Ruslan Ray MD [Primary Care Provider] - Stand Alone Forms: Patient Portal/API
[2023-03-10] MEDS: SODIUM CHLORIDE 0.9% 1,000 ML 1000 ML IV (09:20)
[2023-03-10] MEDS: ONDANSETRON 4 MG/2 ML INJ IV (09:23)
[2023-03-10 09:30] VITALS: BP 152/72; PULSE 58; RESP 16; O2SAT 96
[2023-03-10 09:30] LABS: Add Manual Diff / Slide Review NO; Basophils Absolute Auto 100 /uL (0-100); Basophils Percent Auto 0.8 % (0-2); Eosinophils Absolute Auto 0 /uL (0-450); Eosinophils Percent Auto 0.6 % (2-4); Hematocrit 38.6 % (36-46); Hemoglobin 13.2 g/dL (12.0-16.0); Lymphocytes Absolute Auto 1200 /uL (1100-4500); Lymphocytes Percent Auto 17.6 % (25-40); Mean Corpuscular HGB Conc 34.2 % (30-36); Mean Corpuscular Hemoglobin 31.4 PG (26-34); Mean Corpuscular Volume 91.6 fL (80-100); Monocytes Absolute Auto 300 /uL (0-900); Monocytes Percent Auto 4.8 % (3-14); Neutrophils Absolute Auto 5200 /uL (1500-7000); Neutrophils Percent Auto 76.2 % (50-75); Platelet Count 223 X10^3/uL (150-400); Red Blood Cell Count 4.21 X10^6/uL (4.0-5.2); Red Cell Distribution Width 12.4 % (11.6-14.8); White Blood Cell Count 6.9 X10^3/uL (4.5-11.0)
[2023-03-10 09:37] LABS: BUN Creatinine Ratio 21.1 (6-22); Blood Urea Nitrogen 12 mg/dL (7-17); Calcium 9.5 mg/dL (8.4-10.2); Carbon Dioxide 25 mmol/L (22-32); Chloride 99 mmol/L (98-107); Estimated Glomerular Filt Rate > 60 mL/min (>60); Glucose 119 mg/dL (80-110); HEMOLYSIS < 15 (0-50); Potassium 3.5 mmol/L (3.4-5.1); Sodium 132 mmol/L (137-145)
[2023-03-10 10:00] VITALS: BP 148/65; PULSE 56; RESP 14; O2SAT 97
[2023-03-10 10:52] VITALS: BP 159/65; PULSE 55; RESP 24; TEMP 37; O2SAT 99
== END 2023-03-10 10:53 | disposition home or self-care (01) ==
PROVIDERS: Emergency Provider Emergency Medicine; PCP Family Medicine
DX: R11.2 Nausea with vomiting, unspecified (principal)
CPT/HCPCS: 36415; 80048; 85025; 96374; 99283; 99284; J2405

== ENCOUNTER 2023-05-31 08:28 | Day surgery (SDC) | payer MEDICARE, OTHER, SELFPAY ==
[2023-05-31] VITALS (7 sets, daily range): BP systolic 87–137; BP diastolic 42–80; PULSE 52–58; RESP 12–99; TEMP 36.4–36.6; O2SAT 15–100
--- NOTE | 2023-05-31 | PATH_ITS ---
[facility] Accession Number: [id number] No. of containers..01 Tissue . 01 Material submitted: . colon - TRANSVERSE POLYP . 01 Diagnosis: TRANSVERSE COLON POLYP, BIOPSY: Tubular adenoma. [facility] 06/03/2023 1101 Local . 01 Electronically signed: . Cara Kilgore MD, Pathologist NPI- [id number] . 01 Gross description: . TRANSVERSE POLYP: Received in formalin is 1 fragment(s) of lucas, soft tissue measuring 0.2 x 0.1 x 0.1 cm submitted entirely in 1 cassette(s) /AAY 06/02/2023 0619 Local . 01 Pathologist provided ICD-10: D12.3 . 01 CPT . 549976 Specimen Comment: A courtesy copy of this report has been sent to [phone] Performed at: 01 [facility] Located within [facility] [address] [place] [address], [place], [place] [id number] MD Juan Sen MD Phone: [phone]
[2023-05-31] MEDS: LACTATED RINGERS 1,000 ML 100 ML IV (08:52)
--- NOTE | 2023-05-31 09:27 | PM.OP.COLON ---
Operative Date/Time/Diagnoses Date of procedure: 05/31/23 Time of procedure: 09:27 Pre-op diagnosis: History of colon polyps Post-op diagnosis: same Procedure & Clinicians Study performed: Colonoscopy with cold forceps polypectomy under anesthetic Same procedure as scheduled: Yes Indications: History of colon polyps Surgeon: Jennifer Esquivel Procedure Notes Procedure in detail: Preop diagnosis: History of colon polyps Postop diagnosis: Same Operative procedure: Colonoscopy with cold forceps polypectomy under anesthesia Surgeon: Melody Esquivel MD Findings: Moderate size sigmoid diverticulosis. Transverse colon polyp 2 mm in size taken with cold forceps. Procedure: Patient placed in a lateral position. Rectal exam performed showing normal tone no masses. Colonoscope inserted into the rectum and advanced to ileocecal valve with minimal difficulty. Insufflation extraction of the scope and the above findings. Cold forceps polypectomy was performed in the ascending colon for a 2 mm polyp. Retroflex was then included in the rectum. Impression: Single polyp in the transverse colon 2 mm in size, diverticulosis of the descending colon Plan: Repeat colonoscopy in 5 years Findings: divertiulosis and polyp(s) Specimen(s): other (2 mm transverse colon polyp) Complications: none Post-procedure Recommendations: Colonoscopy in 5 years Follow up: as needed Disposition: PACU
--- NOTE | 2023-05-31 09:27 | PM.HP.1 ---
History of Present Illness History of Present Illness Date Patient Seen: 05/31/23 Time Patient Seen: 09:27 Chief complaint: Screening Colonoscopy Narrative: History of colon polyps. Last colonoscopy 5 years ago at [facility]. No current symptoms of concern, a nephew at age 45 with colon cancer [facility] Medical History COVID-19 Right humeral fracture Ascending aorta enlargement Chicken pox (1959) Measles (~1960) Mumps (1959) Rubella (1959) Plantar warts (1974) Depression (1988) Hayfever Osteoarthritis Colon polyps Tinnitus (1974) 4 para 4 TSS (toxic shock syndrome) (2003) Surgical History History of colonoscopy with polypectomy (03/17/14) Anesthesia History of eye surgery (1963) History of tonsillectomy (1960) Status post endometrial ablation (2004) Family History Father Lung cancer Grandfather No problems noted. Grandmother Heart disease Mother Breast cancer Grandfather No problems noted. Grandmother No problems noted. Sister No problems noted. Social History Smoking Status: Never smoker alcohol intake: current Meds Home Medications and Allergies Home Medications Medication Instructions Recorded Confirmed Type cholecalciferol (vitamin D3) 50 1 tab PO QDAY ##0 02/27/16 03/12/23 History mcg (2,000 unit) tablet (Vitamin D3) cyanocobalamin (vitamin B-12) 1,000 mcg PO ##0 02/27/16 03/12/23 History 1,000 mcg tablet,extended release [docusate sodium] ##0 07/16/17 03/12/23 History nirmatrelvir 300 mg (150 mg See Rx Instructions PO .COMPLEX 04/05/23 05/31/23 Rx x2)-ritonavir 100 mg tablet,dose #30 ea pack (Paxlovid) estradiol 10 mcg vaginal tablet 10 mcg vaginal ONCE PM #90 tabs 04/11/23 05/31/23 Rx albuterol sulfate 90 mcg/actuation See Rx Instructions .Route 05/30/23 05/31/23 Rx aerosol inhaler .COMPLEX #18 grams Allergies Allergy/AdvReac Type Severity Reaction Status Date / Time Iodinated Contrast Media Allergy Severe Rash Verified 05/31/23 08:46 [Iodinated Contrast- Oral and IV Dye] Penicillins [PENICILLINS] Allergy Mild Verified 05/31/23 08:46 Sulfa (Sulfonamide Allergy Mild RASH Verified 05/31/23 08:46 Antibiotics) [SULFA (SULFONAMIDE ANTIBIOTICS)] Review of Systems Review of Systems ROS: Yes All systems reviewed with the patient and are negative except as otherwise documented Exam Vital Signs (past 8 hours): - 05/31/23 08:53 Temperature 97.6 F Pulse Rate 56 L Respiratory Rate 16 Blood Pressure 137/80 Pulse Oximetry 98 Oxygen Delivery Method Room Air Oxygen Delivery Method Room Air Const General: cooperative, comfortable and anxious Nutritional Appearance: average body habitus HENMT Head: normocephalic and atraumatic Ears: hearing grossly normal bilaterally Eyes General: appearance normal, both eyes and all related structures Sclera: sclerae normal Neck Neck: trachea midline and No JVD Resp Effort & Inspection: normal respiratory effort and able to speak in complete sentences Cardio Rate: regular rate Rhythm: regular rhythm GI Palpation: soft and No tender Skin General: elasticity normal and turgor normal Neuro General: patient alert, patient awake and patient oriented x3 Psych Appearance: grossly normal Mental Status: mental status grossly normal Judgment: judgment good Assessment & Plan Assessment & Plan narrative: History of colon polyps. Plan: Colonoscopy with anesthesia Time Spent With Patient Time with patient: less than 30 minutes
== END 2023-05-31 10:48 | disposition home or self-care (01) ==
PROVIDERS: PCP Family Medicine; Referring Provider Surgery; Visit Provider Surgery
PROC: 0DJD8ZZ Inspection of Lower Intestinal Tract, Via Natural or Artificial Opening Endoscopic (ICD-10-PCS; CPT 45378; principal; 2023-05-31 09:15)
DX: Z12.11 Encounter for screening for malignant neoplasm of colon (principal); Z86.010 Personal history of colon polyps; K57.30 Diverticulosis of large intestine without perforation or abscess without bleeding; D12.3 Benign neoplasm of transverse colon
CPT/HCPCS: 45380; J2704

== ENCOUNTER → 2023-12-20 12:45 | Outpatient (CLI) | payer MEDICARE, OTHER, SELFPAY ==
--- NOTE | 2023-12-20 12:46 | DI.MG.S_ITS ---
BILATERAL DIGITAL SCREENING MAMMOGRAM 3D/2D WITH CAD: 12/20/2023 CLINICAL: Routine screening. Family history of breast cancer. Comparison is made to exams dated: 12/18/2022 mammogram, 11/28/2021 mammogram, and 11/22/2020 mammogram - [facility]. There are scattered areas of fibroglandular density (category b / 25%-50% glandular tissue). Current study was also evaluated with a Computer Aided Detection (CAD) system. There is a biopsy clip in the left breast. No significant masses, calcifications, or other findings are seen in either breast. There has been no significant interval change. IMPRESSION: BENIGN There is no mammographic evidence of malignancy. A 1 year screening mammogram is recommended. Based on the Tyrer Cuzick model (a risk assessment model) the patient's lifetime risk is 12.7% and her 10 year risk is 7.6%. According to the ACR, ACS, and NCCN guidelines, an annual breast MRI exam along with mammogram is recommended if the patient's lifetime risk is 20% or greater. This exam was interpreted at Station ID: [id number]. NOTE: For mammograms, a report in lay terms will be sent to the patient. Approximately 15% of breast malignancies will not be visualized mammographically. In the management of a palpable breast mass, a negative mammogram must not discourage biopsy of a clinically suspicious lesion. Electronically Signed By: Rachana Kumar M.D., Ph.D. galindo/kam:12/20/2023 14:20:45 letter sent: Normal Exam ACR BI-RADS Category 2: Benign [id number]
== END ==
LOC: MAMMO 12:46
PROVIDERS: PCP Family Medicine; Referring Provider Family Medicine; Visit Provider Family Medicine
DX: Z12.31 Encounter for screening mammogram for malignant neoplasm of breast (principal); Z80.3 Family history of malignant neoplasm of breast
CPT/HCPCS: 77063; 77067

== ENCOUNTER → 2024-03-02 14:45 | Outpatient (CLI) | payer MEDICARE, OTHER, SELFPAY | PROVIDERS: PCP Family Medicine; Referring Provider Family Medicine; Visit Provider Family Medicine | DX: R06.02 Shortness of breath (principal); R94.2 Abnormal results of pulmonary function studies; R06.09 Other forms of dyspnea | CPT/HCPCS: 94060; 94726; 94729 ==

== ENCOUNTER → 2024-03-12 13:56 | Outpatient (CLI) | payer MEDICARE, OTHER, SELFPAY ==
[2024-03-12 14:41] LABS: Hematocrit 37.8 % (36-46); Hemoglobin 12.7 g/dL (12.0-16.0); Mean Corpuscular HGB Conc 33.7 % (30-36); Mean Corpuscular Hemoglobin 31.3 PG (26-34); Mean Corpuscular Volume 93.1 fL (80-100); Platelet Count 239 X10^3/uL (150-400); Red Blood Cell Count 4.06 X10^6/uL (4.0-5.2); Red Cell Distribution Width 12.7 % (11.6-14.8); White Blood Cell Count 5.9 X10^3/uL (4.5-11.0)
[2024-03-12 15:08] LABS: Alanine Aminotransferase 30 IU/L (<35); Albumin 4.5 g/dL (3.5-5.0); Albumin Globulin Ratio 1.8 (1.0-2.8); Alkaline Phosphatase 58 U/L (38-126); Aspartate Aminotransferase 40 IU/L (14-36); BUN Creatinine Ratio 23.7 (6-22); Bilirubin Total 0.5 mg/dL (0.2-1.3); Blood Urea Nitrogen 18 mg/dL (7-17); Calcium 9.4 mg/dL (8.4-10.2); Carbon Dioxide 29 mmol/L (22-32); Chloride 103 mmol/L (98-107); Cholesterol 186 mg/dL (140-199); Estimated Glomerular Filt Rate > 60 mL/min (>60); Globulin 2.5 g/dL (1.7-4.1); Glucose 134 mg/dL (80-110); HDL Cholesterol 77 mg/dL (40-60); HEMOLYSIS < 15 (0-50); LDL Cholesterol Calculated 83 mg/dL (<100); Potassium 3.7 mmol/L (3.4-5.1); Sodium 137 mmol/L (137-145); Triglycerides 131 mg/dL (35-150)
[2024-03-12 15:25] LABS: Vitamin D 25 Hydroxy (D3) 41.6 ng/mL (30.0-100.0)
== END ==
PROVIDERS: PCP Family Medicine; Referring Provider Family Medicine; Visit Provider Family Medicine
DX: E78.00 Pure hypercholesterolemia, unspecified (principal); E55.9 Vitamin D deficiency, unspecified; J44.9 Chronic obstructive pulmonary disease, unspecified; Z13.9 Encounter for screening, unspecified
CPT/HCPCS: 36415; 80053; 80061; 82306; 85027

== ENCOUNTER → 2024-03-18 13:39 | Outpatient (CLI) | payer MEDICARE, OTHER, SELFPAY ==
--- NOTE | 2024-03-18 13:40 | DI.CT.S_ITS ---
PROCEDURE: CT CHEST HIGH RESOLUTION INDICATIONS: rule out ILD with change in PFT TECHNIQUE: Noncontrast 1.0 and 5.0 mm thick contiguous axial sections from the pulmonary apex to the posterior costophrenic angles, with 7 mm thick coronal and sagittal MIP reformats. 1 mm thick dynamic expiratory images acquired through the upper, mid, and lower lungs. 1.0 mm thick axial sections acquired from the niall to the posterior costophrenic angles in the prone end-inspiration position. For radiation dose reduction, the following was used: automated exposure control, adjustment of mA and/or kV according to patient size. COMPARISON: None. FINDINGS: Image quality: Diagnostic. Lower Neck: No enlarged lymph nodes. Thyroid: No thyroid nodules which require sonographic follow up, per consensus guidelines. Axillae: No enlarged lymph nodes. Chest Wall: Unremarkable. Bones: T7 vertebral hemangioma. Lungs and Pleura: No pneumothorax or pleural effusions. A couple of pulmonary micro nodules, index nodule measures 2 millimeters in the left lower lobe (series 3, image 195). No honeycombing. No bronchiectasis. No ground-glass. No air trapping. Heart: Heart size is normal. No pericardial effusion. Thoracic Vessels: The aorta and pulmonary arteries demonstrate normal size. Mediastinum and [place]: No enlarged lymph nodes. Esophagus: No wall thickening. No hiatal hernia. Upper Abdomen: Visualized upper abdomen solid organs and bowel loops appear normal. IMPRESSION: No evidence of interstitial lung disease. Pulmonary micronodules. Consider 12 month follow-up if at high risk for developing lung cancer, per Fleischner Society guidelines. Dictated by: Gamaliel Lyon M.D. on 03/18/2024 at 15:48 Approved by: Gamaliel Lyon M.D. on 03/18/2024 at 15:51
[2024-03-18 15:02] LABS: Hemoglobin A1C% w Est Avg Glu 5.3 % (4.0-6.0)
== END ==
PROVIDERS: PCP Family Medicine; Referring Provider Internal Medicine; Visit Provider Internal Medicine
DX: R06.02 Shortness of breath (principal); J45.40 Moderate persistent asthma, uncomplicated; R73.01 Impaired fasting glucose
CPT/HCPCS: 36415; 71250; 83036; 94664; 95012; 99215

== ENCOUNTER 2024-07-10 15:02 | Emergency (ER) | payer MEDICARE, SELFPAY ==
[2024-07-10 15:09] VITALS: BP 160/87; PULSE 66; RESP 15; TEMP 36.1; O2SAT 100; BMI 23.9
--- NOTE | 2024-07-10 15:16 | DI.RAD.S_ITS ---
PROCEDURE: XR CHEST 1V INDICATIONS: Shortness of breath TECHNIQUE: One view of the chest was acquired. COMPARISON: None. FINDINGS: Surgical changes and devices: None. Lungs and pleura: Lungs are clear. No pleural effusions or pneumothorax. Mediastinum: Mediastinal contours appear normal. Heart size is enlarged. Bones and chest wall: No suspicious bony lesions. Overlying soft tissues appear unremarkable. IMPRESSION: No acute pulmonary process. Dictated by: Jessica Gipson M.D. on 07/10/2024 at 15:56 Approved by: Jessica Gipson M.D. on 07/10/2024 at 15:56
--- NOTE | 2024-07-10 15:28 | EKG_ITS ---
[address] [address] Test Date: 2024-07-10 Pat Name: Christ Yang Department: [facility]ed [facility] Room: Gender: Female [employer]: CHERYL : 1955 Requested By: Order Number: [id number] Reading MD: Alexis Alvarez Measurements Intervals [place] Rate: 64 P: 41 MN: 172 QRS: -46 QRSD: 76 T: 65 QT: 420 QTc: 433 Interpretive Statements Normal sinus rhythm Low voltage QRS Left anterior fascicular block Possible Anterolateral infarct , age undetermined Electronically Signed On 07-10-2024 19:11:38 PDT by Alexis Alvarez
[2024-07-10 15:44] LABS: Add Manual Diff / Slide Review NO; Basophils Absolute Auto 0 /uL (0-100); Eosinophils Absolute Auto 100 /uL (0-450); Eosinophils Percent Auto 2.8 % (2-4); Hematocrit 39.1 % (36-46); Hemoglobin 13.3 g/dL (12.0-16.0); Lymphocytes Absolute Auto 1600 /uL (1100-4500); Lymphocytes Percent Auto 30.8 % (25-40); Mean Corpuscular HGB Conc 34.1 % (30-36); Mean Corpuscular Hemoglobin 31.3 PG (26-34); Mean Corpuscular Volume 91.9 fL (80-100); Monocytes Absolute Auto 400 /uL (0-900); Monocytes Percent Auto 7.7 % (3-14); Neutrophils Absolute Auto 2900 /uL (1500-7000); Neutrophils Percent Auto 57.7 % (50-75); Platelet Count 224 X10^3/uL (150-400); Red Blood Cell Count 4.25 X10^6/uL (4.0-5.2); Red Cell Distribution Width 12.7 % (11.6-14.8)
[2024-07-10 15:53] LABS: INR 0.9 (0.9-1.3); Prothrombin Time 10.4 SECONDS (9.4-12.5)
[2024-07-10 15:54] LABS: Lactate (Lactic Acid) 0.8 mmol/L (0.7-2.1)
[2024-07-10 15:55] LABS: Alanine Aminotransferase 23 IU/L (<35); Albumin 4.8 g/dL (3.5-5.0); Albumin Globulin Ratio 1.7 (1.0-2.8); Alkaline Phosphatase 71 U/L (38-126); Aspartate Aminotransferase 35 IU/L (14-36); BUN Creatinine Ratio 22.7 (6-22); Bilirubin Total 0.5 mg/dL (0.2-1.3); Blood Urea Nitrogen 15 mg/dL (7-17); Calcium 9.7 mg/dL (8.4-10.2); Carbon Dioxide 25 mmol/L (22-32); Chloride 101 mmol/L (98-107); Estimated Glomerular Filt Rate > 60 mL/min (>60); Globulin 2.9 g/dL (1.7-4.1); Glucose 103 mg/dL (80-110); HEMOLYSIS < 15 (0-50); Potassium 3.9 mmol/L (3.4-5.1); Sodium 137 mmol/L (137-145); Total Protein 7.7 g/dL (6.3-8.2)
[2024-07-10 16:07] LABS: NT-proBNP (BNP-Adult 18+) < 20 pg/mL (<125); Troponin I < 0.012 ng/mL (0.01-0.034)
[2024-07-10 16:23] LABS: Influenza A - CEPHEID Flu A NEGATIVE (NEGATIVE); Influenza B - CEPHEID Flu B NEGATIVE (NEGATIVE); Respiratory Syncytial Virus Negative (Negative)
[2024-07-10 16:28] LABS: COVID-19 CEPHEID 4-PLEX PCR Negative (Negative)
[2024-07-10 21:10] VITALS: BP 174/80; PULSE 63; RESP 18; TEMP 36.1; O2SAT 98
== END 2024-07-10 21:17 | disposition left against medical advice (07) ==
PROVIDERS: Family Medicine; Internal Medicine; Emergency Provider Emergency Medicine; PCP Family Medicine
DX: R06.02 Shortness of breath (principal); R05.9 Cough, unspecified; I44.4 Left anterior fascicular block
CPT/HCPCS: 0241U; 36415; 71045; 80053; 83605; 83880; 84484; 85025; 85610; 93005; 99283

== ENCOUNTER → 2024-08-03 10:48 | Outpatient (CLI) | payer MEDICARE, SELFPAY ==
[2024-08-03 12:32] LABS: COVID-19 CEPHEID 4-PLEX PCR Negative (Negative); Influenza A - CEPHEID Flu A NEGATIVE (NEGATIVE); Influenza B - CEPHEID Flu B NEGATIVE (NEGATIVE); Respiratory Syncytial Virus Negative (Negative)
== END ==
PROVIDERS: PCP Family Medicine; Visit Provider Nurse Practitioner Family
DX: J45.40 Moderate persistent asthma, uncomplicated (principal); J30.1 Allergic rhinitis due to pollen; R05.1 Acute cough
CPT/HCPCS: 0241U; 87070

== ENCOUNTER → 2024-08-03 11:22 | Outpatient (CLI) | payer MEDICARE, SELFPAY ==
--- NOTE | 2024-08-03 11:23 | DI.RAD.S_ITS ---
PROCEDURE: XR CHEST 2V INDICATIONS: Cough TECHNIQUE: 2 views of the chest were acquired. COMPARISON: [facility], CR, XR CHEST 1V, 07/10/2024, 15:25. FINDINGS: Surgical changes and devices: None. Lungs and pleura: Lungs are clear. No pleural effusions or pneumothorax. Mediastinum: Mediastinal contours are normal. Heart size is normal. Bones and chest wall: No suspicious bony abnormalities. Soft tissues appear unremarkable. IMPRESSION: No acute cardiopulmonary abnormality is seen. Dictated by: Gamaliel Lyon M.D. on 08/03/2024 at 15:04 Approved by: Gamaliel Lyon M.D. on 08/03/2024 at 15:04
== END ==
PROVIDERS: PCP Family Medicine; Referring Provider Nurse Practitioner Family; Visit Provider Nurse Practitioner Family
DX: J45.40 Moderate persistent asthma, uncomplicated (principal); J30.1 Allergic rhinitis due to pollen; R05.1 Acute cough
CPT/HCPCS: 0241U; 71046; 87070

== ENCOUNTER → 2024-08-06 10:22 | Outpatient (CLI) | payer MEDICARE, SELFPAY ==
[2024-08-06 13:02] LABS: Adenovirus Not Detected (Not Detect); B. parapertussis Not Detected (Not Detecte); Bordetella pertussis Not Detected (Not Detect); Chlamydophila pneumoniae Not Detected (Not Detect); Coronavirus 229E Not Detected (Not Detect); Coronavirus HKU1 Not Detected (Not Detect); Coronavirus NL 63 Not Detected (Not Detect); Coronavirus OC43 Not Detected (Not Detect); Human Metapneumovirus Not Detected (Not Detect); Human Rhinovirus/Enterovirus Not Detected (Not Detect); Influenza A Not Detected (Not Detect); Influenza B Not Detected (Not Detect); Mycoplasma pneumoniae Not Detected (Not Detect); Parainfluenza Virus 1 Not Detected (Not Detect); Parainfluenza Virus 2 Not Detected (Not Detect); Parainfluenza Virus 3 Detected (Not Detect); Parainfluenza Virus 4 Not Detected (Not Detect); Respiratory Syncytial Virus Not Detected (Not Detect); SARS- CoV-2 Not Detected (Not Detecte)
== END ==
PROVIDERS: PCP Family Medicine; Visit Provider Family Medicine
DX: R09.89 Other specified symptoms and signs involving the circulatory and respiratory systems (principal); R05.9 Cough, unspecified
CPT/HCPCS: 87633